=== PATIENT | female | born 1930 | race Caucasian/White ===

== ENCOUNTER 2016-11-28 13:18 | Inpatient (IN) | payer MEDICARE, BC ==
[~2016-11-28] VITALS: Ht 162.6 cm; Wt 59.5 kg
--- NOTE | ~2016-11-28 | HEMODYNAMI ---
PATIENT:CYDNEY PITT MEDICAL RECORD: [id number] : [birth year] [facility] ADMISSION DATE: 11/28/16 Generatedon:12/06/201610:41 Patient name: CYDNEY PITT Patient #: [id number] SSN: : 1930 Date of study: 12/06/2016 Page: Of Hemodynamic Procedure Report Patient Data Patient Demographics Procedure consent was obtained First Name: CYDNEY Gender: Female Last Name: SWEETIE : 1930 [facility] Initial: B Age: 86 year(s) Patient #: [id number] Race: Unknown Additional ID: [id number] Contact details Address: [address] [place] [address] [facility] State: [place] City: [place] Zip code: [address] Past Medical History Allergies Allergen Reaction Date Comments Reported NSAIDs 12/06/2016 Admission Admission Data Admission Date: 11/28/2016 Admission Time: 13:18 Room #: [facility] Weight (lbs.): 131 Weight (kg.): 59.42 Procedure Procedure Types Cath Procedure Peripheral Cath Diagnostic Procedure Cath Peripheral Abd/Extremity Extremities Bilat Lower Extremity Procedure Description Procedure Date Procedure Date: 12/06/2016 Procedure Start Time: 8:48 Procedure Staff Name Function Andrew Cruz MD Performing Physician Kenrick Anderson RT Scrub Candelario Roque MD Additional personnel Hiral Fletcher RN Nurse Jenny Xie RN Nurse Lucy Meredith RT Bran Mixer Lucy Meredith RT Monitor Procedure Data Cath Procedure Fluoroscopy Diagnostic fluoroscopy Total fluoroscopy Time: 13 time: 13 min min Diagnostic fluoroscopy Total fluoroscopy dose: 74 dose: 74 mGy mGy Contrast Material Contrast Material Type Amount (ml) Isovue 300 55 Entry Location Entry Primary Successful Side Size Upsize Upsize Entry Closure Succes sful Closure Location (Fr) 1 (Fr) 2 (Fr) Remarks Device Remarks Femoral Left Mynx artery Binding Stitcher 6Fr/7Fr Diagnostic catheters Device Type Used For End Catheter Placement Diagnostic 5Fr IMT Catheter Procedure Medications Medication Administration Route Dosage Heparin Bolus I.V. 4000 units Verapamil 2.5 mg Nitroglycerin IC/IA I.A. 300 Nitroglycerin IC/IA I.A. 300 Heparin Bolus I.V. 1000 units Nitroglycerin IC/IA I.A. 200 Hemodynamics Rest Heart Rate: 90 (bpm) Snapshots Pre Cath Intra NCS Post Cath Vital Signs Time Heart Resp SPO2 NIBP (mmHg) Rhythm Pain Sedation Rate (ipm) (%) Status Level (bpm) 8:16:25 106 18 95 No Cuff NSR 0 (11) 10(A) , No pain 8:20:25 104 16 94 No Cuff NSR 0 (11) 10(A) , No pain 8:24:25 96 19 94 No Cuff NSR 0 (11) 10(A) , No pain 8:28:24 95 24 91 No Cuff NSR 0 (11) 10(A) , No pain 8:32:05 101 20 92 153/78(116) NSR 0 (11) 10(A) , No pain 8:36:25 77 19 91 149/61(115) NSR 0 (11) 10(A) , No pain 8:40:45 74 19 84 130/59(100) NSR 0 (11) 10(A) , No pain 8:44:57 70 23 98 118/59(88) NSR 0 (11) 10(A) , No pain 8:49:05 70 23 96 116/59(94) NSR 0 (11) 10(A) , No pain 8:53:13 66 6 65 117/58(95) NSR 0 (11) 10(A) , No pain 8:57:21 70 10 100 118/58(86) NSR 0 (11) 10(A) , No pain 9:01:33 66 10 100 105/47(81) NSR 0 (11) 10(A) , No pain 9:05:41 64 10 99 94/46(71) NSR 0 (11) 10(A) , No pain 9:09:44 63 10 99 95/45(73) NSR 0 (11) 10(A) , No pain 9:13:50 60 10 99 91/43(72) NSR 0 (11) 10(A) , No pain 9:17:54 61 10 99 89/43(68) NSR 0 (11) 10(A) , No pain 9:21:58 59 10 99 89/44(68) NSR 0 (11) 10(A) , No pain 9:25:22 60 9 99 98/45(74) NSR 0 (11) 10(A) , No pain 9:29:28 58 9 99 90/44(70) NSR 0 (11) 10(A) , No pain 9:33:32 59 10 99 89/43(68) NSR 0 (11) 10(A) , No pain 9:37:36 60 9 99 84/42(65) NSR 0 (11) 10(A) , No pain 9:41:35 59 9 99 100/45(75) NSR 0 (11) 10(A) , No pain 9:42:31 60 10 99 95/41(73) NSR 0 (11) 10(A) , No pain 9:46:35 57 9 99 104/49(82) NSR 0 (11) 10(A) , No pain 9:50:40 59 9 99 Aborted NSR 0 (11) 10(A) , No pain 9:52:29 58 10 99 107/49(84) NSR 0 (11) 10(A) , No pain 9:55:41 59 9 98 109/49(86) NSR 0 (11) 10(A) , No pain 9:59:49 59 10 99 114/48(90) NSR 0 (11) 10(A) , No pain 10:03:57 59 9 99 120/52(95) NSR 0 (11) 10(A) , No pain 10:08:07 60 9 99 121/51(98) NSR 0 (11) 10(A) , No pain 10:12:19 61 9 99 128/51(100) NSR 0 (11) 10(A) , No pain 10:16:33 60 9 99 126/52(99) NSR 0 (11) 10(A) , No pain 10:20:47 57 9 99 122/49(93) NSR 0 (11) 10(A) , No pain 10:24:57 76 9 99 132/62(102) NSR 0 (11) 10(A) , No pain 10:29:13 63 24 99 117/53(87) NSR 0 (11) 10(A) , No pain 10:33:23 62 14 99 115/50(88) NSR 0 (11) 10(A) , No pain 10:35:17 79 17 99 132/59(94) NSR 0 (11) 10(A) , No pain 10:39:27 78 16 94 149/68(118) NSR 0 (11) 10(A) , No pain Medications Time Medication Route Dose Verified Delivered Reason Notes Ef fectiveness by by 9:30:00 Verapamil IA 2.5mg Jenny Andrew Per physician Rojas Cruz RN, MD 9:30:51 Nitroglycerin I.A. 300 Jenny Andrew for IC/IA Rojas Nancy vasodilation PORTILLO SALINAS 9:35:27 Heparin Bolus I.V. 4000 Jenny Jenny for units Rojas Rojas anticoagulation RN PORTILLO 9:51:13 Nitroglycerin I.A. 300 Jenny Andrew for IC/IA Rojas Nancy vasodilation PORTILLO SALINAS 10:12:35 Heparin Bolus I.V. 1000 Jenny Jenny for units Rojas Rojas anticoagulation RN PORTILLO 10:18:36 Nitroglycerin I.A. 200 Jenny Andrew for IC/IA Rojas Nancy vasodilation PORTILLO SALINAS Procedure Log Time Note 7:48:47 Patient Weight : 131 kg 7:49:37 Use device set IR Diagnostic 7:49:43 Sterile Angiographic Pack opened to sterile field. 7:49:44 Bag Decanter opened to sterile field. 7:50:14 Micropuncture VSI 4FR kit opened to sterile field. 7:50:14 Cook CARLSON 145cm guide wire opened to sterile field. 7:50:36 - 8:01:41 Time tracking: Regular hours 8:08:43 Plan of Care:Hemodynamics will remain stable., Cardiac rhythm will remain stable., Comfort level will be maintained., Respiratory function will remain adequate., Patient/ family verbilizes understanding of procedure., Procedure tolerated without complication., Recovers from procedure without complications.. 8:08:50 Patient received from CVICU to IR Alert and oriented. Tansferred to table in Supine position. 8:08:51 Correct patient and procedure confirmed by team. 8:08:53 Signed procedure consent form obtained from patient. 8:08:56 - 8:09:03 H&P Date Dictated: 12/06/2016 Within 30 days and on chart.. 8:09:05 Pre-procedure instructions explained to patient. 8:09:06 Pre-op teaching completed and patient verbalized understanding. 8:09:08 Family in waiting room. 8:09:10 Patient NPO since Midnight. 8:09:29 Patient allergic to NSAIDs 8:09:38 Is the patient allergic to Iodine/contrast media? No. 8:10:04 Is patient on blood thinner?No 8:10:23 Patient diabetic? No. 8:10:26 - 8:10:28 ----Pre-sedation anethsthesia assessment.---- 8:10:35 Previous problem with sedation/anesthesia? No ? 8:12:23 see anesthesia notes for monitoring of patient during procedure 8:12:40 Pre procedure: right dorsailis pedis pulse Doppler 8:12:45 Pre procedure: left dorsailis pedis pulse Doppler 8:12:50 Pre procedure: right posterior tibial pulse Doppler 8:12:55 Pre procedure: left posterior tibial pulse Doppler 8:15:34 Vital chart was started 8:35:11 Baseline sample Acquired. 8:35:13 - 8:35:23 Physician arrived 8:36:14 CXI Catheter 90cm opened to sterile field. 8:39:22 --------ALL STOP TIME OUT------ 8:39:22 Final Timeout: patient, procedure, and site verified with staff and physician. All members of the team are in agreement. 8:47:21 Physical assessment completed. ASA score P 4 - A patient with severe systemic disease that is a constant threat to life as per Andrew Cruz MD. 8:47:38 Procedure started. 8:47:38 Full Disclosure recording started 8:48:06 Local anesthetic to right pedal artery with Lidocaine 1% by Andrew Cruz MD.INITIAL ACCESS ONLY 8:48:41 Arterial access obtained using ultrasound guidance. 8:57:49 anesthesia was changed to general 9:19:50 Alex OncimmuneNNER .035 145 glide wire opened to sterile field. 9:22:53 DILATOR, VESSEL 4/20 opened to sterile field. 9:30:00 Verapamil 2.5mg IA was administered by Andrew Cruz MD; Per physician ; 9:30:51 Nitroglycerin IC/IA 300 I.A. was administered by Andrew Cruz MD; for vasodilation; 9:31:00 [place] Eliezer 5FR Sheath opened to sterile field. 9:33:24 A Diagnostic 5Fr IMT Catheter was advanced over the wire and used for . 9:35:15 Terumo 6Fr [place] Destination Sheath opened to sterile field. 9:35:16 Cook DELONG 260 guide wire opened to sterile field. 9:35:27 Heparin Bolus 4000 units I.V. was administered by Jenny Xie RN; for anticoagulation; 9:39:24 CXI SUPPORT .035 135 CM STR catheter opened to sterile field. 9:42:[address] 260 .035 glide wire opened to sterile field. 9:45:28 Cantwell Sci Choice PT Floppy Straight 300cm 0.014 g opened to sterile field. 9:47:52 Turbohawk 1 Small Atherectomy catheter opened to sterile field. 9:51:13 Nitroglycerin IC/IA 300 I.A. was administered by Andrew Cruz MD; for vasodilation; 10:12:35 Heparin Bolus 1000 units I.V. was administered by Jenny Xie RN; for anticoagulation; 10:18:36 Nitroglycerin IC/IA 200 I.A. was administered by Andrew Cruz MD; for vasodilation; 10:21:23 St Eliezer 6Fr sheath opened to sterile field. 10:26:31 MYNX BREAK AND LOAD OPERATOR 6FR/7FR opened to sterile field. 10:27:22 A sheath was inserted into the Left Femoral artery 10:27:22 Sheath removed intact; hemostasis achieved with Mynx Binding Stitcher 6Fr/7Fr to th e Left Femoral artery. 10:28:02 Procedure ended.(Physican Out) 10:28:09 Fluoroscopy time 13.00 minutes. 10:28:17 Fluoroscopy dose: 74 mGy 10:28:17 Flurop Dose total: 74 10:28:23 Contrast amount:Isovue 300 55ml. 10:28:26 Procedure and supply charges have been captured, reviewed, submitted an d are correct. 10:41:33 Vital chart was stopped Device Usage Item Name Manufacture Quantity Catalog Number Hospital Part Current Or nimal Lot# / Charge Number Stock Stock Serial# Code Sterile Cardinal 1 [id number] 5 Angiographic Health Pack Bag Decanter Microtek 1 [id number] 214189 78394 829682 5 Medical Inc. Micropuncture VSI VASCULAR 1 [id number] 525790 807298 5 VSI 4FR kit SOLUTIONS [facility] 1 [id number] 389560 475213 5 [id number] 145cm guide wire CXI Catheter [facility] 1 [id number] 585649 208577 268946 5 [id number] 90cm Cook [facility] 1 [id number] 440145 084018 [id number] .035 145 glide wire DILATOR, [facility] 1 [id number] 543587 34691 277009 [id number] VESSEL 4/[address] Eliezer 1 663243 166698 611167 5 [id number] Sheath Diagnostic [place] 1 [id number] 323156 508725 28261 5 5Fr IMT Scientific Catheter Terumo 6Fr Terumo 1 RSR01 137020 80214 047479 5 [place] Destination Sheath [facility] 1 [id number] 762672 256779 5 [id number] 260 guide wire CXI SUPPORT [facility] 1 X40374 173464 998221 5 [id number] .035 135 CM STR catheter [facility] 1 [id number] 406936 580307 [id number] 260 .035 glide wire Cantwell Sci [place] 1 [id number] 520729 967551 236009 5 Choice PT Scientific Floppy Straight 300cm 0.014 g Turbohawk 1 Ev3 1 H1-S 404595 9972961 558948 [address] [facility] [address] [facility] [place] 1 693818 066541 390149 5 0737835 sheath MYNX BREAK AND LOAD OPERATOR Access 1 [id number] 523125 978701 5 [id number] 6FR/7FR Closure Signature Audit [place] Stage Time Signature Unsigned Intra-Procedure 12/06/2016 Lucy Meredith 10:41:31 AM RT(R) Signatures Monitor : Lucy Meredith RT Signature : Date : Time : [facility] Alva0 MAURILIO ABDUL [address]
[~2016-11-28 13:18] MED LIST: ASPIRIN EC81 M1 PO; BAYER CHEWABLE81 MG PO; BRILINTA90 MG PO; CARAFATE1 G/10 ML PO; CARDIZEM CD120 MG PO; CLARITIN 10 MG10 MG PO; COENZYME Q10100 MG PO; COUMADIN1 MG PO; COUMADIN2 MG PO; FEXOFENADINE HC60 MG PO; HYDROCODON-ACE1 EAC7 PO; IMODIUM2 MG PO; K-TAB10 MEQ PO; LOTENSIN20 MG PO; LOTREL 10/20 CA1 CAP PO; MUCINEX600 MG PO; NORCO 5/325 TAB1 TA1 PO; NORVASC10 MG PO; PHENERGAN25 M1 PO; PLAVIX75 MG PO; PROTONIX40 MG PO; ULTRACET TABLET1 TAB PO; ZIAC 10/6.25 MG1 TAB PO
[2016-11-28 14:50] LABS: BASOPHILS 0.1 % (0.0-2.0); EOSINOPHILS 0.8 % (0-7); HEMATOCRIT 32.7 % (36.0-48.0); HEMOGLOBIN 10.4 g/dL (12-16); IMMATURE GRANULOCYTES 0.4 % (0-5); LYMPHOCYTES 14.6 % (15-50); MCH 23.8 pg (26.0-34.0); MCHC 31.8 g/dL (31.0-37.0); MCV 74.8 fL (80.0-100.0); MEAN PLATELET VOLUME 9.8 fL (7.4-10.4); NEUTROPHILS 71.1 % (40-80); PLATELET COUNT 302 10x3/uL (130-400); RBC 4.37 10x6/uL (4.00-5.40); RDW 15.6 % (11.5-14.5); WBC 8.6 10x3/uL (4.8-10.8)
[2016-11-28 15:03] LABS: ANION GAP 14.1 mmol/L (8-16); CARBON DIOXIDE 25.3 mmol/L (21.0-32.0); CREATININE - SERUM 1.1 mg/dL (0.6-1.3); POTASSIUM - SERUM 4.4 mmol/L (3.5-5.1)
[2016-11-28 15:49] VITALS: BP 179/57; BMI 21.3
--- NOTE | 2016-11-28 16:00 | NUR ---
DR TROTTER AND HIS STAFF ARE HERE REDRESSING PATIENTS RIGHT 4TH DIGIT TOE, IT IS PACKED WITH DAKENS AND WRAPPED WITH GAUZE AND KERLIX. PATIENT'S DAUGHTER AT BEDSIDE.
--- NOTE | 2016-11-28 18:30 | NUR ---
TWO IV ATTEMPTS, BOTH FAILED, WILL GET ANOTHER NURSE TO GET IV SITED.
--- NOTE | 2016-11-28 18:50 | NUR ---
20 GAUGE IV SITED TO RIGHT FOREARM X1 ATTEMPT. FLUSHES EASY WITH BRISK BLOOD RETURN PRESENT. SECURED WITH TAPE AND TEGADERM. WELL TOLERATED.
[2016-11-28 20:00] VITALS: BP 127/70
[2016-11-29] VITALS (7 sets, daily range): BP systolic 129–162; BP diastolic 42–69; Ht 162.6 cm; Wt 59.5 kg
--- NOTE | 2016-11-29 00:30 | NUR ---
ASSESSED AT THE BEGINNING OF THE SHIFT. PT IS ALERT AND ORIENTED, ABLE TO VERBALIZE NEEDS. SHE WAS REQUESTING PAIN MEDS FOR HER RIGHT FOOT PAIN AND MD WAS CALLED AND ORDERS OBTAINED. AT BEDTIME SHE TOOK HER OTHER MEDS AND A NORCO 5/325 FOR PAIN AND IS RESTING BETTER NOW. THE RIGHT FOOT IS DRESSED AND HAS A STOCKING TO KEEP DRESSING IN PLACE. THE BED IS LOW, RAILS UP X'S 2 WITH THE CALL LIGHT AT HAND.
[2016-11-29 06:39] LABS: BASOPHILS 0.4 % (0.0-2.0); EOSINOPHILS 1.7 % (0-7); HEMATOCRIT 31.7 % (36.0-48.0); HEMOGLOBIN 10.3 g/dL (12-16); IMMATURE GRANULOCYTES 0.4 % (0-5); LYMPHOCYTES 19.6 % (15-50); MCHC 32.5 g/dL (31.0-37.0); MCV 73.7 fL (80.0-100.0); MEAN PLATELET VOLUME 9.6 fL (7.4-10.4); MONOCYTES 16.2 % (2-11); NEUTROPHILS 61.7 % (40-80); PLATELET COUNT 266 10x3/uL (130-400); RDW 15.6 % (11.5-14.5)
[2016-11-29 06:44] LABS: WBC 4.8 10x3/uL (4.8-10.8)
[2016-11-29 06:57] LABS: ANION GAP 10.5 mmol/L (8-16); CALCIUM 8.3 mg/dL (8.5-10.1); CARBON DIOXIDE 24.3 mmol/L (21.0-32.0); CREATININE - SERUM 1.2 mg/dL (0.6-1.3); POTASSIUM - SERUM 3.8 mmol/L (3.5-5.1)
--- NOTE | 2016-11-29 08:14 | NUR ---
AWAKE AND ALERT. ORIENTED X3. LUNGS ARE CLEAR BILATERALLY, NO COUGH NOTED. SKIN IS INTACT WTIHOUT REDNESS EXCEPT WOUND TO FOURTH TOE ON RIGHT FOOT WHICH HAS A DRY INTACT DRESSING IN PLACE. IV TO RIGHT FOREARM PATENT WITHOUT REDNESS AT INSERTION SITE. DENIES NEEDS. BREAKFAST SERVED IN ROOM.
--- NOTE | 2016-11-29 09:30 | NUR ---
ASSISTED WITH BED BATH PER STAFF. LINENS CHANGED.
--- NOTE | 2016-11-29 16:00 | NUR ---
IV SITED TO RIGHT AC AREA AFTER 2 ATTEMPTS FOR HEPARIN INFUSION.
--- NOTE | 2016-11-29 17:56 | NUR ---
Patient Name: CYDNEY PITT Admission Status: Urgent Admission Date: 11-28-2016 : 1930 Admission Diagnosis:UNSP OPN WND RIGHT LESSER TOE(S) W/O DAMAGE TO NAIL, IN Attending: AUGUSTO Current LOS: 1 Anticipated DC Date: 12-03-2016 Planned Disposition: Home Primary Insurance: MEDICARE A & B Discharge Planning Comments: CM met with patient to discuss discharge planning/needs. The patient states she resides at [facility]. She states there are no steps but she does use the elevator. Patient also states she has a walker, wheelchair, and a shower chair. She states she is otherwise independent in all ADL's. The patient states she has used [facility] in the past and feels they would be beneficial at discharge. She denies additional DME needs at this time. The patient states her home is a safe environment to return to. Her PCP is Dr. Jose and she uses [facility]([phone]). If facility does not supply van for transportation at discharge, the patient's daughter "Sally Atkins" ([phone] or [phone]) will transport her home. CM will follow and continue to assist patient with discharge planning/needs. Sheet Writer: Perla Shaw * Is the patient Alert and Oriented? Yes 0 * How many steps to enter\\exit or inside your home? 0 0 * PCP Dr. Jose [phone] 0 * Pharmacy [facility] [phone] 0 * Preadmission Environment Other 0 * Other Environment Independent Living at [facility] 0 * Facility Name [facility] [address] 0 * ADLs Partial Dependent 0 * Partial ADLs (Assistance needed) Ambulation 0 * Equipment Shower Chair Walker Wheelchair 0 * List name and contact numbers for known caregivers / representatives who currently or will assist patient after discharge: Sally Atkins "daughter" ([phone]) Patient states caregivers with [facility] [address] [facility] also assist patient as needed 0 * Community resources currently utilized None 0 * Additional services required to return to the preadmission environment? No 0 * Can the patient safely return to the preadmission environment? Yes 0 * Has this patient been hospitalized within the prior 30 days at any hospital? No 0 Grand Total: 0
--- NOTE | 2016-11-29 18:00 | NUR ---
UP TO BR WITH ONE PERSON MIN ASSIST. HEPARIN DRIP INITIATED AFTER PTT RESULTED. NO CHANGES AT THIS TIME.
[2016-11-30] VITALS: BP 113/60
[2016-11-30 04:00] VITALS: BP 126/66
[2016-11-30 07:26] LABS: BASOPHILS 0.4 % (0.0-2.0); EOSINOPHILS 1.6 % (0-7); HEMATOCRIT 32.8 % (36.0-48.0); HEMOGLOBIN 10.5 g/dL (12-16); IMMATURE GRANULOCYTES 0.2 % (0-5); LYMPHOCYTES 19.2 % (15-50); MCH 23.6 pg (26.0-34.0); MCV 73.7 fL (80.0-100.0); MEAN PLATELET VOLUME 9.9 fL (7.4-10.4); MONOCYTES 18.5 % (2-11); NEUTROPHILS 60.1 % (40-80); PLATELET COUNT 260 10x3/uL (130-400); RBC 4.45 10x6/uL (4.00-5.40); RDW 15.5 % (11.5-14.5); WBC 5.5 10x3/uL (4.8-10.8)
--- NOTE | 2016-11-30 07:30 | NUR ---
RECIEVED PT DURING WALKING ROUNDS. PT RESTING COMFORTABLY IN BED WITH NO COMPLAINTS OF PAIN OR DISCOMFORT AT THIS TIME. ASSESSMENT DONE PER FLOWSHEET. BED IN LOW POSITION AND CALL LIGHT WITHIN REACH. WILL CONTINUE TO MONITOR.
[2016-11-30 07:45] LABS: ANION GAP 10.3 mmol/L (8-16); CREATININE - SERUM 1.1 mg/dL (0.6-1.3); POTASSIUM - SERUM 3.3 mmol/L (3.5-5.1)
[2016-11-30 07:48] LABS: CALCIUM 8.1 mg/dL (8.5-10.1)
[2016-11-30 09:32] VITALS: BP 160/55
--- NOTE | 2016-11-30 10:22 | NUR ---
NORCO GIVEN AT THIS TIME PER ORDER FOR PAIN IN THE PT FOOT. WILL CONTINUE TO MONITOR. BED IN LOW POSITION AND CALL LIGHT WITHIN REACH. WILL CONTINUE TO MONITOR.
--- NOTE | 2016-11-30 12:52 | NUR ---
QUIET IN ROOM AT PRESENT DENIES ANY NEEDS IV FLUIDS CONT RESP EVEN UNLABORED N/C VOICED AT PRESENT.
[2016-11-30 13:46] VITALS: BP 141/50
[2016-11-30 19:18] VITALS: BP 140/69
[2016-11-30 20:00] VITALS: BP 158/54
[2016-12-01] VITALS: BP 176/52
--- NOTE | 2016-12-01 00:10 | NUR ---
PT LAYING IN BED NO DITRESS OBSERVED CALL LIGHT IN REACH SRX2 BED LOW AND LOCKED WILL MONITOR PT DENIES PAIN AND ASSISTED PT TO REST ROOM
[2016-12-01 03:31] LABS: BASOPHILS 0.1 % (0.0-2.0); HEMOGLOBIN 11.2 g/dL (12-16); IMMATURE GRANULOCYTES 0.3 % (0-5); LYMPHOCYTES 12.2 % (15-50); MCH 23.7 pg (26.0-34.0); MEAN PLATELET VOLUME 9.6 fL (7.4-10.4); MONOCYTES 11.3 % (2-11); NEUTROPHILS 74.1 % (40-80); PLATELET COUNT 280 10x3/uL (130-400); RBC 4.73 10x6/uL (4.00-5.40); RDW 15.6 % (11.5-14.5)
[2016-12-01 03:33] LABS: WBC 7.1 10x3/uL (4.8-10.8)
[2016-12-01 03:52] LABS: ALBUMIN 3.2 g/dL (3.4-5.0); ANION GAP 15.9 mmol/L (8-16); BILIRUBIN - TOTAL 0.45 mg/dL (0.2-1.3); CALCIUM 8.7 mg/dL (8.5-10.1); CARBON DIOXIDE 23.8 mmol/L (21.0-32.0); POTASSIUM - SERUM 3.7 mmol/L (3.5-5.1); VANCOMYCIN - TROUGH 14.8 ug/mL (10.0-20.0)
[2016-12-01 04:00] VITALS: BP 155/46
--- NOTE | 2016-12-01 06:12 | NUR ---
IV TO RIGHT FORE ARM INFILTRATED DC'D IV CATHETER INTACT AND RESITED TO LEFT FORE ARM 20G ONE STICK ZOYSON INFUSING AT THIS TIME CALL LIGHT IN REACH SRX2 BED LOW AND LOCKED HEPRIN INFUSING TO RIGHT AC @ 7.5 NO REDNESS OBSERVED BED LOW AND LOCKED WILL MONITOR
--- NOTE | 2016-12-01 07:45 | NUR ---
ASSISTED PATIENT TO AND FROM THE BATHROOM. PATIENT'S DRESSING CAME OFF OF HER FOOT. CLEANED THE WOUND WITH WOUND HOSPITAL ACCOUNT MANAGER. APPLIED A SMALL PEICE OF PACKING TAPE WET WITH DAKIN'S SOLUTION TO THE LATERAL SIDE OF FORTH TOE. THE LATERAL SIDE OF THE TOE IS BLACK. PUT A DRY PIECE OF GAUZE OVER THE WET. THEN WRAPPED FOOT WITH CAST PADDING AND A KERLIX. PATIENT IS IN BED. HOB 30 DEGREES. FOOT OF THE BED IS ELEVATED. BED IS IN LOWEST POSITION, CALL LIGHT IN REACH. BEDRAILS UP X'S 2. PATIENT DENIES NEEDS AT THIS TIME.
[2016-12-01 09:00] VITALS: BP 154/50
--- NOTE | 2016-12-01 15:40 | NUR ---
SPOKE WITH DAUGHTER, AND SHE STATES SHE WANTS TO MEET WITH A OPERATING TABLE ASSEMBLER ABOUT HER MOTHER GOING HOME. HER NUMBER IS [phone], DENISE TINAJERO.
[2016-12-01 16:34] VITALS: BP 146/51
[2016-12-01 20:19] LABS: APPEARANCE CLEAR (CLEAR); BILIRUBIN NEGATIVE (NEGATIVE); COLOR YELLOW (YELLOW); GLUCOSE NEGATIVE (NEGATIVE); KETONE NEGATIVE (NEGATIVE); LEUKOCYTE ESTERASE NEGATIVE (NEGATIVE); NITRITE NEGATIVE (NEGATIVE); PROTEIN 1+ mg/dL (NEGATIVE); UROBILINOGEN NORMAL (NORMAL)
[2016-12-01 20:20] LABS: BACTERIA FEW /hpf (NONE SEEN); EPITHELIAL CELLS 0-5 /hpf (0-5); MUCUS <1+ /lpf (NONE SEEN); RED CELLS - URINE OCC /hpf (0-5); WHITE CELLS - URINE 0-5 /hpf (0-5)
[2016-12-01 23:13] VITALS: BP 165/62
--- NOTE | 2016-12-01 23:13 | NUR ---
PATIENT RESTING IN BED. NO SIGNS OF DISTRESS NOTED. SCHEDULED MEDS GIVEN. ASSESSMENT COMPLETED. DENIES ANY NEEDS AT THIS TIME. BED LOW. CALL LIGHT IN REACH.
[2016-12-02] VITALS (28 sets, daily range): BP systolic 111–183; BP diastolic 31–99
--- NOTE | 2016-12-02 02:15 | NUR ---
22 G IV SITED IN R FOREARM X 2 ATTEMPTS, ESSENCE WELL, FALL PRECAUTIONS IN PLACE, CL IN REACH
--- NOTE | 2016-12-02 03:00 | NUR ---
PT IN BED WITH NO DISTRESS. RESPIRATIONS EVEN AND UNLABORED. SIDE RAILS X 2. BED LOW. CALL LIGHT IN REACH.
--- NOTE | 2016-12-02 04:29 | NUR ---
IV TO L FOREARM INFILTRATED, DC'D WITH CATH INTACT, 20 G SITED IN L FOREARM X 1 ATTEMPT, ESSENCE WELL
[2016-12-02 05:28] LABS: BASOPHILS 0.1 % (0.0-2.0); HEMATOCRIT 34.2 % (36.0-48.0); HEMOGLOBIN 10.9 g/dL (12-16); IMMATURE GRANULOCYTES 0.1 % (0-5); LYMPHOCYTES 21.3 % (15-50); MCH 23.6 pg (26.0-34.0); MCHC 31.9 g/dL (31.0-37.0); MCV 74.2 fL (80.0-100.0); MONOCYTES 12.4 % (2-11); NEUTROPHILS 64.1 % (40-80); PLATELET COUNT 306 10x3/uL (130-400); RBC 4.61 10x6/uL (4.00-5.40); RDW 15.5 % (11.5-14.5); WBC 7.9 10x3/uL (4.8-10.8)
[2016-12-02 05:48] LABS: ANION GAP 15.1 mmol/L (8-16); CALCIUM 8.8 mg/dL (8.5-10.1); CARBON DIOXIDE 25.1 mmol/L (21.0-32.0); POTASSIUM - SERUM 4.2 mmol/L (3.5-5.1)
--- NOTE | 2016-12-02 11:09 | NUR ---
PT RECEIVED TO ROOM VIA BED. ON 8L O2 HIGH FLOW MASK. PT AWAKE, FIGHTING TO KEEP LEGS STRAIGHT. LEFT PEDAL PULSE AND POSTERIOR TIBIAL FOUND BY DOPPLER. RIGHT POSTERIOR TIBIAL FOUND BY DOPPLER. DRESSING INTACT OVER RIGHT FOOT. HAS CLEAR DRESSING TO INCISIONAL SITE AT LEFT GROIN.
--- NOTE | 2016-12-02 11:28 | NUR ---
KRISS TROTTER RN AT [facility] TITRATING NITRO TO EFFECT.
--- NOTE | 2016-12-02 11:33 | NUR ---
PT. HAS HAD NEURO CHANGES SINCE ARRIVING. DR. VILLAVICENCIO HAS BEEN PAGED. WILL NOT RESPOND TO VERBAL STIMULI. HR 113 [address]. BP 149/899. SATTING 95% ON RA. RR 16 EVEN AND UNLABORED.
--- NOTE | 2016-12-02 11:37 | NUR ---
ANSWERING QUESTIONS NOW. CONVERSING WITH KRISS NATH.
--- NOTE | 2016-12-02 11:40 | NUR ---
SUGAMMADEX [address] LUCIA.
--- NOTE | 2016-12-02 12:56 | NUR ---
REMINDED PT. TO KEEP LEGS STRAIGHT. UNDERSTANDS REQUEST. NITRO BEING TITRATED OFF. CLEVIPREX INFUSING.
--- NOTE | 2016-12-02 13:03 | NUR ---
NITRO OFF. CLEVIPREX INCREASED TO 3 CC PER HOUR OR 1.5MG/HR. SBP 143.
--- NOTE | 2016-12-02 13:03 | NUR ---
NO S/S OF BLEEDING AT LEFT GROIN PROCEDURAL SITE.
--- NOTE | 2016-12-02 14:24 | NUR ---
C/O FOOT PAIN. PAIN MEDS ADMN.
--- NOTE | 2016-12-02 14:36 | NUR ---
I SPOKE WITH NICOLE PERERA RN ABOUT UAF RATE OF 150. ORDERS REC'D TO CONSULT CARDIOLOGY.
--- NOTE | 2016-12-02 14:54 | NUR ---
LASHELL ENRIQUEZ AFIB
--- NOTE | 2016-12-02 14:57 | NUR ---
ORDERS REC'D FROM DR LOBO TO GIVE CARDIZEM 120 MG PO X1 AND SOTOLOL 120 MG PO X1
--- NOTE | 2016-12-02 15:03 | NUR ---
HR 119 UAF
--- NOTE | 2016-12-02 15:30 | NUR ---
NUTRITION MONITORING & EVAL PT S/P PROCEDURE. NOW IN ICU. REG DIET STARTED. WILL PROVIDE DIET, MONITOR PO INTAKE. RD FOLLOWING
--- NOTE | 2016-12-02 16:06 | NUR ---
CONVERTED TO NS RATE OF 80
--- NOTE | 2016-12-02 17:03 | NUR ---
PULLS 750-1000 ON IS
--- NOTE | 2016-12-02 18:15 | NUR ---
FAMILY AT BEDSIDE. UPDATED.
--- NOTE | 2016-12-02 21:00 | NUR ---
NO VISITORS, PT WATCHING TV, VSS.
--- NOTE | 2016-12-02 23:05 | NUR ---
REASSESSMENT PER FLOWSHEET, NO ACUTE CHANGES. VSS. PT AWAKENS EASILY, DENIES NEEDS. C/L IN REACH, ALARMS ON.
[2016-12-03] VITALS (23 sets, daily range): BP systolic 101–152; BP diastolic 40–88
--- NOTE | 2016-12-03 00:31 | NUR ---
PT ON C/L. C/O R FOOT "STARTING TO HURT". ADMIN PRN FELICO. WILL CONT CLOSE MONITORING.
--- NOTE | 2016-12-03 01:10 | NUR ---
RESTING WITH EYES CLOSED, FLACC = 0. VSS.
--- NOTE | 2016-12-03 03:30 | NUR ---
REASSESSMENT PER FLOWSHEET, NO ACUTE CHANGES. VSS.
[2016-12-03 06:21] LABS: BASOPHILS 0.4 % (0.0-2.0); EOSINOPHILS 2.4 % (0-7); IMMATURE GRANULOCYTES 0.1 % (0-5); LYMPHOCYTES 16.6 % (15-50); MCH 23.2 pg (26.0-34.0); MCV 75.1 fL (80.0-100.0); MEAN PLATELET VOLUME 9.6 fL (7.4-10.4); MONOCYTES 14.2 % (2-11); NEUTROPHILS 66.3 % (40-80); RDW 15.6 % (11.5-14.5); WBC 7.4 10x3/uL (4.8-10.8)
[2016-12-03 06:32] LABS: HEMATOCRIT 26.8 % (36.0-48.0); HEMOGLOBIN 8.3 g/dL (12-16); PLATELET COUNT 230 10x3/uL (130-400); RBC 3.57 10x6/uL (4.00-5.40)
[2016-12-03 06:35] LABS: ALBUMIN 2.3 g/dL (3.4-5.0); ANION GAP 7.5 mmol/L (8-16); BILIRUBIN - TOTAL 0.3 mg/dL (0.2-1.3); CALCIUM 7.6 mg/dL (8.5-10.1); CARBON DIOXIDE 30.6 mmol/L (21.0-32.0); CREATININE - SERUM 1.2 mg/dL (0.6-1.3); PROTEIN - SERUM 5.2 g/dL (6.4-8.2)
[2016-12-03 06:47] LABS: POTASSIUM - SERUM 3.1 mmol/L (3.5-5.1)
--- NOTE | 2016-12-03 07:45 | NUR ---
SHIFT ASSESSMENT VIA FLOWSHEET, SEE FOR DETAILS. VSS, SR ON CM WITH PAC.
--- NOTE | 2016-12-03 08:35 | NUR ---
ORTIZ CATHETER D/C'D PER ORDER.
--- NOTE | 2016-12-03 08:39 | NUR ---
PT OFF UNIT TO MRI.
--- NOTE | 2016-12-03 09:17 | NUR ---
SPOKE WITH BENSON, WOUND CARE, NOTIFIED OF CONSULT AND STATES SHE WILL SEE PATIENT TODAY.
--- NOTE | 2016-12-03 09:26 | NUR ---
PT RETURNED FROM MRI, ICU MONITORS RECONNECTED.
--- NOTE | 2016-12-03 09:35 | NUR ---
PT OOB WITH PHYSICAL THERAPY ASSIST. RETURNED TO CHAIR AT BEDSIDE.
--- NOTE | 2016-12-03 10:18 | NUR ---
WOUND CARE HERE TO ASSESS AND DRESS WOUND ON PT RIGHT FOOT, 4TH TOE.
--- NOTE | 2016-12-03 10:47 | NUR ---
DR LOBO HERE TO SEE PT, NEW ORDERS RECEIVED.
--- NOTE | 2016-12-03 10:47 | NUR ---
SHIFT ASSESSMENT VIA FLOWSHEET, SEE FOR DETAILS. VSS, SR ON CM WITH OCC PAC.
--- NOTE | 2016-12-03 11:17 | NUR ---
NORCO 5/325MG GIVEN PER ORDER FOR PT C/O PAIN. [employer] UNABLE TO SCAN MEDS AT THIS TIME. JOHNNY WITH I/T AWARE AND WORKING TO CORRECT THE ISSUE.
--- NOTE | 2016-12-03 11:23 | NUR ---
WOUND CARE CONSULT: RIGHT #4 TOE IS DARK PURPLE IN COLOR, COOL TO TOUCH. ON THE TIBIAL ASPECT OF THE TOE IS AN OPEN WOUND (#5 TOE RESTS IN THIS AREA CAUSING PRESSURE). THE WOUND IS DRY BUT PT STATES IT DOES DRAIN OCCASIONALLY. THERE IS NO ODOR. SHE IS A WOUND CLINIC PATIENT OF DR. HANNA AND THE PAST TREATMENT HAS BEEN TO USE 1/4 STRENGTH DAKINS SOLUTION SATURATED 1/4" PLAIN PACKING ON THE WOUND BED AND COVERING WITH A DRY DRESSING. WOUND CARE RECOMMENDS CONTINUING THIS TREATMENT AT THIS TIME. WILL CONTINUE MONITORING.
--- NOTE | 2016-12-03 11:30 | NUR ---
REASSESSMENT VIA FLOWSHEET, SEE FOR DETAILS.
--- NOTE | 2016-12-03 12:50 | NUR ---
PT AMBULATED 25FT WITH WALKER AND PHYSICAL THERAPY ASSIST.
--- NOTE | 2016-12-03 13:04 | NUR ---
SEE PAPER MAR FOR MEDICATION DOCUMENTATION DURING MEDITECH DOWNTIME.
--- NOTE | 2016-12-03 15:00 | NUR ---
REASSESSMENT VIA FLOWSHEET, SEE FOR DETAILS. VSS, SR ON CM.
--- NOTE | 2016-12-03 17:35 | NUR ---
DR TROTTER HERE TO MAKE EVENING ROUNDS. PT OOB IN CHAIR, VOICES NO ADDITIONAL NEEDS AT THIS TIME.
--- NOTE | 2016-12-03 18:15 | NUR ---
PT ASSISTED BACK TO BED.
--- NOTE | 2016-12-03 19:00 | NUR ---
REPORT RECEIVED AND ASSESSMENT COMPLETED. SEE FLOWSHEET. PT IN ROOM RESTING. VSS. HAS DRESSING ON LEFT GROIN. DRESSING INTACT. ALL PULSES PALPABLE. WILL CONTINUE TO MONITOR.
--- NOTE | 2016-12-03 21:00 | NUR ---
2100 MEDS GIVEN. PT HD BOWEL MOVEMENT. NO OTHER CHANGES AT THIS TIME. VSS. WILL MONITOR.
--- NOTE | 2016-12-03 23:05 | NUR ---
REASSESSMENT COMPLETED. SEE FLOWSHEET. NORCO GIVEN FOR PAIN IN RIGHT FOOT. WILL CONTINUE TO MONITOR.
[2016-12-04] VITALS (41 sets, daily range): BP systolic 120–164; BP diastolic 30–81
--- NOTE | 2016-12-04 03:57 | NUR ---
REASSESSMENT COMPLETED. SEE FLOWSHEET. ASSISTED PT TO BSC. NO OTHER CHANGES AT THIS TIME. VSS. WILL MONITOR.
--- NOTE | 2016-12-04 04:57 | NUR ---
PT WOKE UP WITH COMPLAINT OF PAIN IN FOOT AND ELEVATED B/P. NORCO GIVEN FOR PAIN. CLEVIPREX STARTED PER ORDERS. WILL CONTINUE TO MONITOR.
--- NOTE | 2016-12-04 07:30 | NUR ---
SHIFT ASSESSMENT VIA FLOWSHEET, SEE FOR DETAILS. VSS.
[2016-12-04 07:58] LABS: HEMATOCRIT 26.3 % (36.0-48.0); HEMOGLOBIN 8.2 g/dL (12-16); MCH 23.6 pg (26.0-34.0); MCHC 31.2 g/dL (31.0-37.0); MCV 75.8 fL (80.0-100.0); MEAN PLATELET VOLUME 9.9 fL (7.4-10.4); RBC 3.47 10x6/uL (4.00-5.40); RDW 15.8 % (11.5-14.5); WBC 7.1 10x3/uL (4.8-10.8)
[2016-12-04 08:02] LABS: ALBUMIN 2.3 g/dL (3.4-5.0); ANION GAP 9.3 mmol/L (8-16); BILIRUBIN - TOTAL 0.28 mg/dL (0.2-1.3); CALCIUM 7.8 mg/dL (8.5-10.1); CARBON DIOXIDE 29.3 mmol/L (21.0-32.0); PROTEIN - SERUM 5.4 g/dL (6.4-8.2)
[2016-12-04 08:05] LABS: POTASSIUM - SERUM 3.6 mmol/L (3.5-5.1)
--- NOTE | 2016-12-04 08:20 | NUR ---
ASSISTED PT OOB AND INTO CHAIR AT BEDSIDE. BREAKFAST TRAY PROVIDED. VSS. VOICES NO ADDITIONAL NEEDS AT THIS TIME. CALL LIGHT WITHIN REACH.
--- NOTE | 2016-12-04 09:00 | NUR ---
NUTRITION MONITORING & EVAL CHART REVIEWED, PT VISIT. POOR INTAKE REG BREAKFAST. PT REPORTS SHE PREFERS TO EAT MORE IN THE AFTERNOON AND EVENING. GETTING UP WITH PHYSICAL THERAPY AT THIS TIME. WILL PROVIDE REG DIET, HONOR FOOD PREFERNCES. RD FOLLOWING
--- NOTE | 2016-12-04 09:25 | NUR ---
PT AMBULATED 100FT WITH ASSISTIVE DEVICE.
--- NOTE | 2016-12-04 09:35 | NUR ---
ASSISTED PT TO RESTROOM. LEFT SUBCLAVIAN SALINE LOCKED AT THIS TIME PER ORDER.
--- NOTE | 2016-12-04 11:00 | NUR ---
REASSESSMENT VIA FLOWSHEET, SEE FOR DETAILS.
--- NOTE | 2016-12-04 13:00 | NUR ---
PT AMBULATED 150FT.
--- NOTE | 2016-12-04 13:25 | OP ---
PATIENT NAME: CYDNEY PITT MEDICAL RECORD: [id number] :[birth year] LOCATION:[id number] ADMISSION DATE:11/28/16 SURGEON: NEENA TROTTER MD DATE OF OPERATION: 12/02/2016 SURGEON: Neena Trotter MD. ANESTHESIA: General endotracheal, Dr. Roque. OPERATIONS PERFORMED: 1. Left common femoral artery sheath placement, 4-Zambian, 5-Zambian, 6-Zambian long. 2. Left external iliac arteriogram. 3. Selective right common femoral arteriogram. 4. Selective right superficial femoral arteriogram. 5. 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 6. Popliteal arteriogram. 7. Posterior tibioperoneal artery trunk arteriogram with runoff. 8. Jetstream thromboatherectomy of the entire superficial femoral artery. 9. Angioplasty, drug-coated balloon, 6 x 150, 6 x 120 and 6 x 150. 10. Angioplasty of the distal popliteal artery with a 4 x 40 nondrug-eluting balloon. PREOPERATIVE DIAGNOSIS: Gangrenous toe, right fourth digit. 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 INDICATION FOR OPERATION: Gangrene, right foot. FLUOROSCOPY TIME: 25 minutes 14 seconds. CONTRAST: Isovue 213 mL. ESTIMATED BLOOD LOSS: Less than 20 mL. FINDINGS OF THE OPERATION: 1. Left external iliac arteriogram demonstrates diffuse disease, but no significant stenosis. 2. Selective right common femoral arteriogram reveals good flow into the profunda with no flow into the superficial femoral artery. 3. Selective right superficial femoral arteriogram demonstrates no flow. 4. 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 5. Posterior tibioperoneal artery trunk arteriogram with runoff demonstrates severe disease with total occlusion of the anterior tibial, posterior tibial and peroneal arteries with collateralization to the peroneal artery to the foot. 6. Jetstream thromboatherectomy of the superficial femoral artery demonstrates much improved flow, but suboptimal. 7. Angioplasty, drug-coated balloon, 6 x 150, x 6 x 120 and 6 x 150. Post-inflation with much improved flow through the superficial femoral artery stents with flow into the popliteal artery with sluggish runoff to the foot. 8. Status post angioplasty of the distal popliteal artery demonstrates much improved flow through the distal popliteal artery. OPERATIVE REPORT [id number] CYDNEY PITT DESCRIPTION OF PROCEDURE: After informed consent, adequate preoperative medication evaluation, the patient was brought to the operating room, placed on the table in the supine position. After induction of general endotracheal anesthesia and application of appropriate monitoring devices, both groins and right leg were prepped and draped in a sterile field, utilizing Betadine scrub, alcohol, and Betadine solution. A Betadine-impregnated drape was also used. Utilizing a micropuncture technique, a 4-Zambian sheath was placed in the left common femoral artery retrogradely. This was followed by a 5-Zambian sheath. Arteriogram demonstrated the above findings with no significant stenosis. Utilizing a Glidewire and rim catheter, the right common femoral artery was selected and exchange made for an Amplatz wire with placement of a 7-Zambian long into the right common femoral artery. Arteriogram demonstrated good flow into the profunda without any flow into the superficial femoral. A steep ALVARADO injection was then made and the stent cannulated. The sheath was placed into the stent. Arteriogram demonstrated no flow. Therefore, the sheath was backed and utilizing a [place] wire and 0.018 Quick-Cross, the popliteal artery was accessed. Arteriogram demonstrated a diffuse disease distally in the open popliteal artery. The wire and Quick-Cross were then placed into the posterior tibioperoneal artery trunk. Arteriogram demonstrated total occlusion of all vessels with peroneal runoff to the ankle. The peroneal artery was then cannulated with the 0.018 and exchange made for the Jetstream atherectomy wire. Utilizing the Jetstream atherectomy device, a thromboatherectomy was performed of the superficial femoral artery on the right from the orifice of the superficial femoral artery to the mid popliteal segment. Angiogram demonstrated improved flow, but suboptimal. Three drug-coated balloons were then used to dilate the superficial femoral artery with a good result. A 4 x 40 balloon was then placed in the distal popliteal artery and the distal popliteal artery dilated with a good result. Arteriogram demonstrated good flow through the area with collateralization to the foot. The wires and catheter sheaths were removed and an 8-[place]ian Angio-Seal was used to close the left common femoral artery. The patient was given 50 mg of protamine to partially reverse the heparin given when the first sheath was placed. The patient tolerated the procedure well and was transferred to the CV ICU in satisfactory condition. TRANSINT:[id number] Voice Confirmation ID: [id number] DOCUMENT ID: [id number] NEENA TROTTER MD at 1325 CC: [id number] DICTATION DATE: 12/02/16 1120 VP CLINICAL: 12/02/16 2044 ADM IN [facility] [id number] [place] [address]
--- NOTE | 2016-12-04 15:00 | NUR ---
REASSESSMENT VIA FLOWSHEET, SEE FOR DETAILS.
--- NOTE | 2016-12-04 19:00 | NUR ---
REPORT RECEIVED AND ASSESSMENT COMPLETED. SEE FLOWSHEET.
--- NOTE | 2016-12-04 21:00 | NUR ---
STARTED CLEVIPREX PER ORDERS DUE TO HIGH B/P. 2100 MEDS GIVE. PROVIDED NORCO PRN FOR PAIN IN FOOT. WILL CONTINUE TO MONITOR.
--- NOTE | 2016-12-04 22:00 | NUR ---
PT O2 SAT IN UPPER 80'S WHEN SLEEPING. WHEN AROUSED RISES INTO LOW 90'S WILL MONITOR FOR CHANGES IN STATUS
--- NOTE | 2016-12-04 23:00 | NUR ---
REASSESSMENT COMPLETED. SEE FLOWSHEET.
[2016-12-05] VITALS (96 sets, daily range): BP systolic 123–158; BP diastolic 42–107
--- NOTE | 2016-12-05 01:00 | NUR ---
PT REQUESTED PAIN MEDICATION. WILL ADMINISTER WHEN AVAILABLE PER ORDERS. PLACED PT ON O2 3L. VSS. WILL CONTINUE TO MONITOR.
--- NOTE | 2016-12-05 03:34 | NUR ---
REASSESSMENT COMPLETED. SEE FLOWSHEET. NO OTHER CHANGES AT THIS TIME. VSS. WILL MONITOR.
--- NOTE | 2016-12-05 05:03 | NUR ---
NO CHANGES IN STATUS AT THIS TIME.
--- NOTE | 2016-12-05 07:00 | NUR ---
PT REPORT REC'D, PT CARE ASSUMED. PT AAOX4 VSS, ROOM AIR, NO C/O PAIN. LEFT SUBCLAVIAN CVL WITH FLUIDS INFUSING, SEE FLOW SHEET. SCD'S, SHIFT ASSESSMENT COMPLETED, SEE FLOW SHEET. ROOM FREE OF CLUTTER, CALL LIGHT IN REACH, WILL CONTINUE TO MONITOR PT.
[2016-12-05 07:41] LABS: HEMATOCRIT 26.2 % (36.0-48.0); HEMOGLOBIN 8.1 g/dL (12-16); MCH 23.3 pg (26.0-34.0); MCHC 30.9 g/dL (31.0-37.0); MCV 75.5 fL (80.0-100.0); MEAN PLATELET VOLUME 10.1 fL (7.4-10.4); RBC 3.47 10x6/uL (4.00-5.40); RDW 15.8 % (11.5-14.5); WBC 7.9 10x3/uL (4.8-10.8)
[2016-12-05 07:58] LABS: ALBUMIN 2.4 g/dL (3.4-5.0); ANION GAP 9.6 mmol/L (8-16); BILIRUBIN - TOTAL 0.24 mg/dL (0.2-1.3); CALCIUM 8.1 mg/dL (8.5-10.1); CARBON DIOXIDE 29.6 mmol/L (21.0-32.0); CREATININE - SERUM 0.9 mg/dL (0.6-1.3); PROTEIN - SERUM 5.2 g/dL (6.4-8.2)
[2016-12-05 08:00] LABS: POTASSIUM - SERUM 4.2 mmol/L (3.5-5.1)
--- NOTE | 2016-12-05 08:00 | NUR ---
DR. JUAREZ AT THE BEDSIDE, VSS, WILL CONTINUE TO MONITOR PT.
--- NOTE | 2016-12-05 08:15 | NUR ---
DR. VÁZQUEZ AT THE BEDSIDE, ALL QUESTIONS ANSWERED, VSS, WILL CONTINUE TO MONITOR PT.
--- NOTE | 2016-12-05 09:00 | NUR ---
PT AMBULATED APPROX 100FT WITH PHYSICAL THERAPY, PT TOLERATED WELL, SITTING UP IN CHAIR. WILL CONTINUE TO MONITOR PT.
--- NOTE | 2016-12-05 11:00 | NUR ---
PT RESTING WITH EYES CLOSED, NO C/O PAIN, VSS, ROOM AIR. REASSESSMENT COMPLETED, SEE FLOW SHEET. ROOM FREE OF CLUTTER, CALL LIGHT IN REACH, WILL CONTINUE TO MONITOR PT.
--- NOTE | 2016-12-05 12:00 | NUR ---
TRANSFERRED PT FROM CHAIR TO BATHROOM, PT TOLERATED WELL, TRANSFERRED BACK TO CHAIR FOR LUNCH, NO C/O PAIN, VSS, WILL CONTINUE TO MONITOR PT.
--- NOTE | 2016-12-05 13:16 | NUR ---
PHYSICAL THERAPY WITH PT, PT AMBULATED APPROX 100FT. PT TOLERATED WELL, WILL CONTINUE TO MONITOR PT.
--- NOTE | 2016-12-05 14:00 | NUR ---
ASSUMED CARE OF PT. REPORT RECIEVED FROM PORTILLO HAWK.
--- NOTE | 2016-12-05 15:15 | NUR ---
UNIT OF BLOOD INFUSING PER ORDERS. NO SIGNS OF TRANSFUSION REACTION NOTED AT THIS LILLI. WILL CONT TO ASSESS.
--- NOTE | 2016-12-05 17:00 | NUR ---
ASSISTED UP IN BED FOR DINNER. DENIES NEEDS AT THIS TIME. CALL LIGHT IN REACH. WILL CONT TO ASSESS.
--- NOTE | 2016-12-05 18:00 | NUR ---
UNIT OF BLOOD COMPLETE. NO ISSUES NOTED.
--- NOTE | 2016-12-05 19:00 | NUR ---
REPORT RECEIVED AND ASSESSMENT COMPLETED. SEE FLOWSHEET FOR FULL DETAILS. PT RESTING IN ROOM. PRBC TODAY. HAS PROCEDURE WITH IR TOMORROW. CONSENTS HAVE BEEN OBTAINED. PT STILL ON CLEVIPREX. RUNNING AT 6 MG/HR RIGHT NOW. WILL ATTEMPT TO TITRATE OFF. WILL CONTINUE TO MONITOR.
--- NOTE | 2016-12-05 21:00 | NUR ---
MEDS GIVEN DURING THE 2100 HOUR. ASSISTED PT TO RESTROOM. 200 ML URINE PRODUCED. VSS. WILL CONTINUE TO MONITOR.
--- NOTE | 2016-12-05 23:16 | NUR ---
REASSESSMENT COMPLETED. SEE FLOWSHEET. ASSISTED PT TO RESTROOM AGAIN. 250 OUT. VSS. WILL MONITOR.
[2016-12-06] VITALS (80 sets, daily range): BP systolic 114–163; BP diastolic 40–98
--- NOTE | 2016-12-06 01:00 | NUR ---
CLEVIPREX INCREASED BY 1MG/HR AT THIS TIME DUE TO INCREASED SYSTOLIC PRESSURE. WILL MONITOR FOR CHANGES. NOW AT 6MG/HR.
--- NOTE | 2016-12-06 03:00 | NUR ---
REASSESSMENT COMPLETED. CLEVIPREX HAS BEEN GRADUALLY INCREASED TO 8 MG/HR. WILL CONTINUE TO MONITOR PRESSURE AND TITRATE ACCORDINGLY.
--- NOTE | 2016-12-06 05:14 | NUR ---
REPLACED CLEVIPREX TUBING AND BOTTLE. NO OTHER CHANGES AT THIS TIME.
[2016-12-06 06:00] LABS: BASOPHILS 0.3 % (0.0-2.0); EOSINOPHILS 4.3 % (0-7); IMMATURE GRANULOCYTES 0.5 % (0-5); MCH 25.9 pg (26.0-34.0); MCHC 34.3 g/dL (31.0-37.0); MCV 75.5 fL (80.0-100.0); MEAN PLATELET VOLUME 9.8 fL (7.4-10.4); MONOCYTES 11.6 % (2-11); NEUTROPHILS 72.3 % (40-80); PLATELET COUNT 247 10x3/uL (130-400); RDW 16.1 % (11.5-14.5); WBC 9.8 10x3/uL (4.8-10.8)
[2016-12-06 06:01] LABS: HEMATOCRIT 31.8 % (36.0-48.0); HEMOGLOBIN 10.9 g/dL (12-16); RBC 4.21 10x6/uL (4.00-5.40)
[2016-12-06 06:08] LABS: INR 1.04 (0.85-1.17); PROTIME 13.5 SECONDS (11.6-15.0)
[2016-12-06 06:09] LABS: APTT 45.3 SECONDS (22.8-39.4)
--- NOTE | 2016-12-06 07:15 | NUR ---
REPORT RECIEVED FROM GARAGEMAN NURSE. PT RESTING IN BED QUIETLY. NO S/SX OF ACUTE DISTRESS AT THIS TIME. HIBICLENS BATH COMPLETED. ANESTHESIA AT BEDSIDE TO PRE OP PT. ORDER RECIEVED TO ADMINISTER PRE OP MEDICATIONS.
--- NOTE | 2016-12-06 08:00 | NUR ---
IR NURSE AT BEDSIDE TO TAKE PT FOR PROCEDURE. CONSENTS IN CHART.
--- NOTE | 2016-12-06 09:40 | NUR ---
NUTRITION MONITORING & EVAL PT CURRENTLY NPO S/P PROCEDURE. NURSING TO RESUME DIET AND ADD PAVAN BOOST TO DIET ORDER. RD FOLLOWING
--- NOTE | 2016-12-06 11:30 | NUR ---
REPORT RECIEVED FROM MICHAELA ARVIZU RN. AWAITING PT FROM RR.
--- NOTE | 2016-12-06 12:00 | NUR ---
RECIEVED PT TO ROOM VIA BED FROM RECOVERY ROOM. CLEVIPREX GTT TURNED BACK ON TO ASSIST WITH HTN. BP 194 SYSTOLIC. PT C/O PAIN TO RIGHT HIP. DRESSING TO LEFT GROIN. C/D/I. NO BRUISING OR HEMATOMA NOTED. DRESSING TO RIGHT ANKLE C/D/I. NO BRUISING OR HEMATOMA NOTED. PEDAL PULSE EASILY DOPPLERABLE TO RIGHT FOOT. DENIES NEEDS AT THIS TIME. WILL CONTINUE TO ASSESS. VS Q15 MIN. WILL TITRATE CLEVIPREX ACCORDINGLY.
--- NOTE | 2016-12-06 14:00 | NUR ---
STRESS INCONTINENCE NOTED. PT URINATED A SMALL AMOUNT WHEN COUGHING. TOTAL LINEN CHANGE PRIOVIDED.
--- NOTE | 2016-12-06 15:00 | NUR ---
SPOKE WITH DAUGHTER DENISE TINAJERO. UPDATE PROVIDED.
--- NOTE | 2016-12-06 17:00 | NUR ---
REPOSITIONED IN BED FOR COMOFORT. CALL LIGHT PLACED IN REACH. WILL CONT TO ASSESS.
--- NOTE | 2016-12-06 19:00 | NUR ---
Assessment complete. See flowsheet. Pt resting quietly with VSS. NO s/s pain or distress. Pt awakens easily to verbal stimulation and is alert, oriented x4 and following all commands and conversation. Pupils size 3 bilaterally ERRLA. Pt moving all extremities with 4/5 strength. No edema noted. Pt receiving O2 @ 2L NC with lung sound CTA. Respirations even and unlabored. HR SR with PACs noted. S1S2 auscultated. Radial pulses +2 bilaterally. Left dorsalis pedis pulse +2. Right dorsalis pedis pulse doppler located. 4th toe to right foot black. Pt denies pain at this time. Left DLSC CVL site CDI no s/s infection with D51/2NS infusing @ 50cc/hr with heparin gtt @ 750un/hr (7.5cc/hr) and cleviprex gtt @ 20mg/hr (40cc/hr). Cleviprex gtt rate decreased to 16mg/hr for SBP 120s. Left groin site CDI with dressing secure. Abdomen soft, non-tender with BS present to all quadrants. Temp 98.5F orally. Pt denies needs at this time and continues to self-position and rest. Call light and bedside table within pt reach. CPOC.
--- NOTE | 2016-12-06 21:00 | NUR ---
No neuro changes to note. VSS. PM meds administered. See MAR. Peanut butter crackers, milk and fresh water provided per pt request.
--- NOTE | 2016-12-06 22:00 | NUR ---
Pt helped to bedpan for void 200cc clear, yellow urine. pt pulled up in bed and helped to self-position for comfort. call light and bedside table remain within reach. VSS. CPOC.
--- NOTE | 2016-12-06 22:31 | NUR ---
Cleviprex gtt weaned to 8mg/hr (16cc/hr)
--- NOTE | 2016-12-06 23:00 | NUR ---
Reassessment complete. See flowsheet. Pt resting with no neuro changes to note. VSS. O2 @ 2L NC. Respirations remain even and unlabored. HR SR with PACs. S1S2 auscultated. No peripheral pulse changes to note. CVL site remains CDI. Cleviprex gtt rate decreased to 4mg/hr for SBP 120s. Lung sounds remain CTA. BS +. Pt denies pain or discomforts at this time. No other changes to note. Call light and bedside table remain within pt reach. CPOC.
[2016-12-07] VITALS (44 sets, daily range): BP systolic 134–195; BP diastolic 47–79
--- NOTE | 2016-12-07 | NUR ---
Cleviprex gtt turned off
--- NOTE | 2016-12-07 01:00 | NUR ---
Pt resting quietly with VSS. No s/s pain or distress and allowed to continue resting undisturbed. Call light and bedside table remain within reach. CPOC.
--- NOTE | 2016-12-07 02:28 | NUR ---
Pt on bedpan to void 150cc clear/yellow urine. Self pericare completed.
--- NOTE | 2016-12-07 03:00 | NUR ---
Reassessment complete. See flowsheet. Awakens easily with no neuro changes to note. VSS. O2 @ 2L NC. Respirations remain even and unlabored. HR SR with PACs. S1S2 auscultated. No peripheral pulse changes to note. CVL site remains CDI. Cleviprex gtt rate decreased to 4mg/hr for SBP 120s. Lung sounds remain CTA. BS +. Pt denies pain or discomforts at this time. No other changes to note. Call light and bedside table remain within pt reach. CPOC.
--- NOTE | 2016-12-07 04:14 | NUR ---
Pt on bedpan to void 400cc concentrated, yellow urine.
--- NOTE | 2016-12-07 05:00 | NUR ---
Pt resting with VSS. NO changes to note.
--- NOTE | 2016-12-07 05:29 | NUR ---
Cleviprex gtt back on @ 5mg/hr for SBP 171.
--- NOTE | 2016-12-07 19:00 | NUR ---
Assessment complete. See flowsheet. Pt awake upon entrance into room with VSS. NO s/s pain or distress. Pt moving all extremities with 4/5 strength. +1 pitting edema noted to lower extremities bilaterally. Pt receiving O2 @ 2L NC. Lung sounds CTA. HR SR with PACs noted. S1S2 auscultated. Radial pulses +2 with left dorsalis pedis pulse +2 and right dorsalis pedis pulse palpated weak and doppler located. Pt left subclavian CVL site CDI with D51/2NS infusing @ 50cc/hr with Heparin gtt @ 750un/hr. BS + to all quadrants. Pt bedpan emptied of 400cc clear/yellow urine. Pt denies pain at this time and helped back on bedpan after assessment. Temp 98.5F orally. Call light and bedside table within pt reach. CPOC.
--- NOTE | 2016-12-07 19:20 | NUR ---
Pt voiding 500cc to bedpan.
--- NOTE | 2016-12-07 21:00 | NUR ---
Bed bath with gown and linen changes completed. Pt helped to position for comfort. VSS. Call light and bedside table within pt reach. CPOC.
--- NOTE | 2016-12-07 23:00 | NUR ---
Reassessment complete. See flowsheet. Pt resting quietly with VSS. NO neuro changes to note. O2 @ 2L NC. Respirations unlabored. Lung sounds CTA. HR SR with PACs noted. S1S2 auscultated. No peripheral pulse changes to note. BS +. Left groin site CDI. Right 4th toe black; unchanged. Pt helped on bedpan to void 400cc clear/yellow urine. Pt self-positions for comfort. Warm blanket provided per pt request. Call light and bedside table remain within pt reach. CPOC.
[2016-12-08] VITALS (24 sets, daily range): BP systolic 140–177; BP diastolic 44–69
--- NOTE | 2016-12-08 00:25 | NUR ---
Pt c/o toe pain to right foot rated 5/10. [place] 5mg 1 tab administered. See MAR. Pt helped to bedpan to void 400cc clear/yellow urine. Call light and bedside table within reach. No further needs at this time. CPOC.
--- NOTE | 2016-12-08 01:00 | NUR ---
Pt resting quietly, self-positioned to left side with VSS. Pain denied. Call light and bedside table remain within reach. CPOC.
--- NOTE | 2016-12-08 03:00 | NUR ---
Reassessment complete. See flowsheet. No neuro changes to note. O2 @ 2L NC. Lung sounds remain clear to all garcia. Respirations even and unlabored. HR SR with PACs. S1S2 auscultated. NO peripheral pulse changes to note. Necrotic 4th toe to right foot unchanged. Left groin site remains CDI; unchanged. CVL site CDI with NO IVF changes to note. BS +. Pt continues to self-position for comfort. No c/o pain. Call light and bedside table remain within pt reach. CPOC.
--- NOTE | 2016-12-08 05:00 | NUR ---
Pt awake and helped on bedpan for void 500cc. Pt pulled up in bed and helped to reposition for comfort. VSS. No further needs at this time. Call light and bedside table remain within pt reach. CPOC.
[2016-12-08 08:11] LABS: BASOPHILS 0.3 % (0.0-2.0); EOSINOPHILS 2.4 % (0-7); HEMATOCRIT 32.4 % (36.0-48.0); HEMOGLOBIN 10.3 g/dL (12-16); IMMATURE GRANULOCYTES 0.4 % (0-5); MCH 24.2 pg (26.0-34.0); MCHC 31.8 g/dL (31.0-37.0); MCV 76.2 fL (80.0-100.0); MEAN PLATELET VOLUME 9.7 fL (7.4-10.4); MONOCYTES 13.3 % (2-11); NEUTROPHILS 72.6 % (40-80); PLATELET COUNT 248 10x3/uL (130-400); RBC 4.25 10x6/uL (4.00-5.40); RDW 16.8 % (11.5-14.5); WBC 9.1 10x3/uL (4.8-10.8)
[2016-12-08 08:28] LABS: ANION GAP 9.6 mmol/L (8-16); CALCIUM 8.6 mg/dL (8.5-10.1); CARBON DIOXIDE 28.5 mmol/L (21.0-32.0); CREATININE - SERUM 1.2 mg/dL (0.6-1.3); POTASSIUM - SERUM 4.1 mmol/L (3.5-5.1)
--- NOTE | 2016-12-08 19:00 | NUR ---
Assessment complete. See flowsheet. Pt resting quietly with VSS and awakens easily to verbal stimulation. No neuro deficits noted. Pt alert, oriented x4 and following all conversation. Pupils size 3 bilaterally ERRLA. Pt moving all extremities with 4/5 strength. Trace edema noted to lower extremities bilaterally. Respirations even and unlabored. O2 @ 2L NC. Lung sounds clear to all garcia. HR SR with PACs noted. S1S2 auscultated. Radial pulses +2 bilaterally. Right dorsalis pedis pulse doppler located; left dorsalis pedis pulse +2. Left CVL site CDI no s/s infection with D51/2NS infusing @ 50cc/hr with Heparin gtt @ 750un/hr (7.5cc/hr). Abdomen soft with BS present to all quadrants. Left groin site CDI with dressing secure, no s/s infection. Right fourth toe necrotic/black. Pt denies pain at this time and helped to bedpan for void. Afterwards, pt pulled up in bed and helped to position for comfort. Call light and bedside table within pt reach. CPOC.
--- NOTE | 2016-12-08 20:32 | NUR ---
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
--- NOTE | 2016-12-08 23:00 | NUR ---
Reassessment complete. See flowsheet. Pt resting with VSS and awakens easily to verbal cue with no neuro changes. O2 @ 2L NC. Lung sounds CTA. HR SR with PACs. S1S2 auscultated. No peripheral pulse changes to note. CVL site CDI with NO IVF changes to note. BS +. Left groin site unchanged. Pt continues to self-position for comfort and denies pain or further needs at this time. Call light and bedside table remain within pt reach. CPOC
[2016-12-09] VITALS (21 sets, daily range): BP systolic 132–198; BP diastolic 48–99
--- NOTE | 2016-12-09 | NUR ---
Heparin gtt turned off per order.
--- NOTE | 2016-12-09 01:00 | NUR ---
Pt resting quietly with VSS
--- NOTE | 2016-12-09 02:15 | NUR ---
Pt helped on bedpan for void 300cc. [place] 1tab 5mg administered for c/o back pain rated 5/10. SEE MAR
--- NOTE | 2016-12-09 04:39 | NUR ---
Pt on bedpan for liquid stool and void. Chlorhexidine bed bath with gown and linen changes completed.
--- NOTE | 2016-12-09 05:00 | NUR ---
Pt sleeping with VSS. NO s/s pain or distress and allowed to continue resting undisturbed. Call light and bedside table remain within pt reach. CPOC.
[2016-12-09 06:07] LABS: BASOPHILS 0.2 % (0.0-2.0); EOSINOPHILS 2.3 % (0-7); HEMATOCRIT 30.4 % (36.0-48.0); HEMOGLOBIN 9.6 g/dL (12-16); IMMATURE GRANULOCYTES 0.3 % (0-5); LYMPHOCYTES 8.9 % (15-50); MCH 24.2 pg (26.0-34.0); MCHC 31.6 g/dL (31.0-37.0); MCV 76.8 fL (80.0-100.0); MEAN PLATELET VOLUME 9.4 fL (7.4-10.4); MONOCYTES 17.2 % (2-11); NEUTROPHILS 71.1 % (40-80); PLATELET COUNT 245 10x3/uL (130-400); RBC 3.96 10x6/uL (4.00-5.40); WBC 8.6 10x3/uL (4.8-10.8)
[2016-12-09 06:19] LABS: ALBUMIN 2.2 g/dL (3.4-5.0); ANION GAP 8.6 mmol/L (8-16); BILIRUBIN - TOTAL 0.32 mg/dL (0.2-1.3); CALCIUM 8.5 mg/dL (8.5-10.1); CREATININE - SERUM 1.4 mg/dL (0.6-1.3); POTASSIUM - SERUM 4.6 mmol/L (3.5-5.1); PROTEIN - SERUM 5.8 g/dL (6.4-8.2)
--- NOTE | 2016-12-09 07:15 | NUR ---
REPORT RECEIVED FROM HEEL COVERER MACHINE OPERATOR NURSE. PT RESTING IN BED QUIETLY. DENIES NEEDS AT THIS TIME. ASSESSMENT COMPLETE PER FLOWSHEET. CALL LIGHT IN REACH. BED IN LOW POSITION. WILL CONTINUE TO ASSESS FOR CHANGES THROUGHTOUT SHIFT.
--- NOTE | 2016-12-09 08:30 | NUR ---
INCONTINENT CARE PROVIDED. PARTIAL LINEN CHANGE COMPLETED. PT ASSISTED WITH BRUSHING HER TEETH. REPOSITIONED IN BED FOR COMFORT. CALL LIGHT IN REACH. BED IN LOW POSITION.
--- NOTE | 2016-12-09 10:23 | NUR ---
NUTRITION MONITORING & EVAL CHART REVIEWED. PT CURRENTLY NPO FOR AMPUTATION OF TOE. WILL PROVIDE DIET WHEN RESUMED, MONITOR PT PROGRESS, PO INTAKE. RD FOLLOWING
--- NOTE | 2016-12-09 11:00 | NUR ---
ASSITED ON BED HYDE. VOIDED 300CC OF CLEAR YELLOW URINE. PARTIAL LINEN CHANGE PROVIDED.
--- NOTE | 2016-12-09 14:45 | NUR ---
OR CALLED TO PRE OP PT. WILL ADMINISTER PER ORDERS.
--- NOTE | 2016-12-09 16:30 | NUR ---
PT TAKEN VIA BED TO PRE OP HOLDING.
--- NOTE | 2016-12-09 20:15 | NUR ---
Received patient resting in bed with eyes closed, assessment completed per flowsheet. Patient is AO x4, demeanor is calm and relaxed. Eyes PERRLA @ 3mm with brisk response, sclera is white. Oral/Nasal Mucosa is moist and intact, Tongue midline. S1/S2 noted Patient NSR on telmetry, HR 67 rhythmic and regular. Breathing is even and unlabored on 3L via NC, Lung sounds clear bilateral upper with diminished lower. Abdomen is soft and non-tender to palpation, bowel sounds Active x4. Full ROM all extremities with pulses palpable bilateral upper and lower L, unable to assess R foot due to dressing. Cap refill <3 sec R foot, skin warm to touch and pink. CVL L subclavian dbl lumen, dressing CDI with fluids infusing. HS meds given without difficulty, patient states "Everything's coming back now...must have been medication" that made her have "strange dreams". Patient repositioned for comfort, no further needs at this time with all VSS and will continue to monitor.
--- NOTE | 2016-12-09 21:00 | NUR ---
No visitors at this time, patient resting in bed with eyes closed. Patient NSR on Telemetry with HR 68, rhythmic and regular. Breathing is even and unlabored on 3l via NC, O2 sat 98%. No further needs at this time, all VSS and will continue to monitor.
--- NOTE | 2016-12-09 22:40 | NUR ---
Assisted patient onto bedpan at request, 300ml clear yellow urine noted. Patient cleaned and partial bath/linen change performed, repositioned for comfort. No further needs at this time, all VSS and will continue to monitor.
--- NOTE | 2016-12-09 23:00 | NUR ---
Reassessment completed per flowsheet, patient resting in bed with eyes closed. NSR on telemetry with HR 67, rhythmic and regular. Breathing is even and unlabored on 2L via NC, O2 sat 97%. R foot pulses unable to assess due to dressing, cap refill <3 sec with skin warm and pink. Patient states pain R foot 2/10 after pain medication given. No further needs at this time, all VSS and will continue to monitor.
[2016-12-10] VITALS (14 sets, daily range): BP systolic 148–187; BP diastolic 45–91
--- NOTE | 2016-12-10 01:00 | NUR ---
PT SLEEPING RESP REG AND NONLABORED.
--- NOTE | 2016-12-10 03:00 | NUR ---
SHIFT REASSESSMENT COMPLETED. NO SIGNIFICANT CHANGES.
--- NOTE | 2016-12-10 05:00 | NUR ---
VSS CONTINUES TO SLEEP RESP REG AND NONLABORED
--- NOTE | 2016-12-10 07:00 | NUR ---
Received report and assumed care of patient from PORTILLO Pearce. Patient is currently awake, alert and oriented to person, place, time and situation. Patient does state she is having visual hallucinations. She states they are pleasent and of scenic views. Patient complains of pain to right foot at surgical site. See shift assessment flowsheet for all findings.
--- NOTE | 2016-12-10 07:50 | NUR ---
Andre with PT in room to get PT OOB and to chair. Pt tolerated well. Beared weight on the right heel. Surgical dressing remains in place.
--- NOTE | 2016-12-10 08:20 | NUR ---
through to see patient. Patient up in chair with breakfast tray. wants to see patient walk later today and spoke to her regarding rehab.
--- NOTE | 2016-12-10 09:21 | NUR ---
Patient finished with breakfast tray. Remains up in chair, call light within reach.
--- NOTE | 2016-12-10 09:56 | NUR ---
Marifer Castaneda APRN in room to see patient. Heel boot ordered and ambulating discussed.
--- NOTE | 2016-12-10 12:19 | NUR ---
Patient okayed to go to rehab today.
--- NOTE | 2016-12-10 12:21 | NUR ---
Jaylin with Rehab called and spoken with. Pt okayed for rehab and informed of this. Will be this afternoon
--- NOTE | 2016-12-10 12:43 | NUR ---
Rehab Prescreening Consult recieved and the chart has been reviewed. The patient meets criteria and is agreeable to participate in the required therapy. She will be accepted today if the physicians agree. The CM Briseida Atkins has been made aware. Jaylin Michelle RN Clinical Liaison, Rehab
[2016-12-10] MEDS ORDERED: ELIQUIS5 MG PO (12:45)
[2016-12-10] MEDS ORDERED: PLAVIX75 MG PO (12:46)
[2016-12-10] MEDS ORDERED: BETAPACE 80 MG80 MG PO (12:47)
[2016-12-10] MEDS ORDERED: DAKIN'S 0.125%480 M1 TOPICAL (12:49)
--- NOTE | 2016-12-10 13:01 | NUR ---
Patient Name: CYDNEY PITT Encounter No: [id number] : 1930 Primary Insurance: MEDICARE A & B Anticipated DC Date: 12-10-2016 Planned Disposition: INPATIENT REHAB External Planned Provider: [facility] IP REH[facility] DCP follow-up note: CM MET WITH PATIENT TO RE-ASSESS DC PLAN. PT HAS INPATIENT REHAB PRE-SCREENING ORDER AND SHE WOULD LIKE TO DC TO [facility] IP REHAB. CM SPOKE WITH PEGGY IN IP REHAB AND SHE INFORMED THAT THEY CAN ACCEPT PATIENT TODAY IF DISCHARGED. PT TO D/C TODAY TO [facility] IP REHAB. SHE VOICED NO OTHER DC NEEDS AT THIS TIME. SHE STATED SHE WILL CALL HER DAUGHTER TO INFORM OF DC PLANS. DC IMM SIGNED AND PLACED IN CHART. WILL FOLLOW AND ASSIST IF ANY NEEDS ARISE. Briseida Capps RN,
[2016-12-10 14:00] LABS: HEMATOCRIT 29.2 % (36.0-48.0); HEMOGLOBIN 9.2 g/dL (12-16); MCH 24.6 pg (26.0-34.0); MCHC 31.5 g/dL (31.0-37.0); MCV 78.1 fL (80.0-100.0); MEAN PLATELET VOLUME 9.6 fL (7.4-10.4); RBC 3.74 10x6/uL (4.00-5.40); RDW 17.1 % (11.5-14.5); WBC 9.6 10x3/uL (4.8-10.8)
--- NOTE | 2016-12-10 14:00 | NUR ---
Labs drawn per order. Sent to lab via tube system.
[2016-12-10 14:10] LABS: ANION GAP 12.2 mmol/L (8-16); CALCIUM 8.3 mg/dL (8.5-10.1); CARBON DIOXIDE 27.6 mmol/L (21.0-32.0); CREATININE - SERUM 1.7 mg/dL (0.6-1.3); POTASSIUM - SERUM 4.8 mmol/L (3.5-5.1)
--- NOTE | 2016-12-10 15:21 | NUR ---
here to see patient. Patient okayed for rehab per his services. Instructed to leave surgical dressing at this time.
--- NOTE | 2016-12-10 15:55 | NUR ---
Awating room in rehab.
--- NOTE | 2016-12-10 17:28 | NUR ---
Patient set up with dinner trashalini. EMAR cleared. Will call rehab with report.
--- NOTE | 2016-12-10 18:51 | NUR ---
Report called to Rehab, pt to be taken via wheelchair
--- NOTE | 2016-12-10 19:04 | NUR ---
here to see patient. No new orders. Patient getting ready to go down to rehab.
--- NOTE | 2016-12-16 13:10 | OP ---
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 PROCEDURE: Amputation of the left toe phalanx with debridement of the metatarsal head. SURGEON: Alexandria Vázquez MD ANESTHESIA: General. INTRAOPERATIVE COMPLICATIONS: None. SUMMARY OF PATHOLOGIC FINDINGS: This toe was basically dry gangrene and required amputation with debridement of the metatarsal head. It was closed. OPERATIVE SUMMARY IN DETAIL: After obtaining the appropriate preoperative orthopedic surgery consents as well as anesthetic consultation, evaluation and clearance, the patient was brought to the operating about were placed in supine position. After general laryngeal mask airway anesthesia was administered, the patient's left lower extremity was prepped and draped in routine sterile fashion. Please note that the tourniquet was not used as the patient has proximal stents as well as severe atherosclerosis of her entire lower extremity. An elliptical incision was made about the base of the toe. Dissection was carried down to the MCP joint, which had already had previous phalangeal autoclasis. The toe was then removed. The wound was copiously irrigated. Bone biters and rongeurs were then used to take down the metatarsal head. Having completed this, the dorsal and plantar flaps were reapproximated using 3-0 Prolene. After the wound was reapproximated and closed, sterile dressings were applied. The patient was awakened and taken to recovery room in stable condition. All final needle and sponge counts were correct. TRANSINT:[id number] Voice Confirmation ID: [id number] DOCUMENT ID: [id number] ALEXANDRIA VÁZQUEZ MD at 1310 CC: [id number] DICTATION DATE: 12/12/16 0949 REGULATORY MANAGER: 12/12/16 1029 DIS IN 12/10/16 [place] [id number]
--- NOTE | 2016-12-17 14:37 | CN ---
PATIENT NAME:CYDNEY PITT MEDICAL RECORD: [id number] : [birth year] LOCATION:[facility] ADMIT DATE: 11/28/16 ACCOUNT: [id number] CONSULTING PHYSICIAN: GABRIELLE LOBO MD REFERRING PHYSICIAN: LOU VERA MD DATE OF CONSULTATION: 12/02/2016 DIAGNOSES: 1. Peripheral vascular disease. 2. Paroxysmal atrial fibrillation. 3. Hypertension. HISTORY OF PRESENT ILLNESS: Mrs. Pitt is here after peripheral vascular surgery by Dr. Friend. She went into atrial fibrillation with rapid response. She has a history of atrial fibrillation. She is on Ziac, diltiazem as well as Eliquis for this. The Eliquis has been on hold. She did not get her morning medications, heart rates in the 110-120 range. She is having no chest pain, chest discomfort with this. PHYSICAL EXAMINATION: GENERAL APPEARANCE: Well-nourished, well-developed, appears stated age. Level of distress, comfortable. PSYCHIATRIC: Mental status, alert, normal affect. Orientation, oriented to time, place and person. EYES: Lids and conjunctiva, noninjected. No discharge, no pallor. ENT: Lips, teeth, gums, normal dentition. Oropharynx, no cyanosis, no pallor. NECK: Carotid arteries, bilateral normal upstroke, no bruits, no thrills. JUGULAR VEINS: No jugular venous pressure or distention. CERVICAL LYMPH NODES: Nontender, nonenlarged. THYROID: Not enlarged. Nontender. No nodules. LUNGS: Respiratory effort, unlabored. CHEST: Normal curvature. No thoracic deformity. No chest wall tenderness. Percussion, resonant. Auscultation, clear. No wheezes, no rales, no rhonchi. CARDIOVASCULAR: Heart is irregularly irregular, tachycardic with atrial fibrillation. EXTREMITIES: No cyanosis, no edema. Peripheral pulses, full and equal in all extremities, except as noted. No bruits appreciated. ABDOMEN: Soft, nondistended. Normal aorta. No bruit. Nontender. No masses. Liver, nontender, no hepatomegaly. Spleen, nontender, no splenomegaly. MUSCULOSKELETAL: No joint tenderness. No joint swelling. No erythema. NEUROLOGICAL: Normal gait, normal strength, normal tone. SKIN: Warm and dry. REVIEW OF SYSTEMS: The patient reports easy bruising but reports no swollen glands. The patient reports no fever, no night sweats, no significant weight gain, no significant weight loss. No significant exercise tolerance. The patient reports no dry eyes, no irritation, no vision change. Patient reports no difficulty hearing and no ear pain. Patient reports no frequent nose bleeds or nose and sinus problems. Patient reports on arm pain on exertion. No shortness of breath while lying down. No history of heart murmur. Patient reports no cough, no wheezing or coughing up blood. Patient reports no abdominal pain, no vomiting. Normal appetite. No diarrhea and not vomiting blood. No nausea and no constipation. Patient reports no incontinence. No difficulty urinating. No hematuria. No increased frequency. Patient reports no muscle aches. No weakness, no arthralgias, no back pain. No swelling of the CONSULT REPORT [id number] CYDNEY PITT extremities. Patient reports no abnormal mole, no jaundice, no rashes. Reports no loss of consciousness. No weakness and no numbness. No seizures, dizziness, or headaches. The patient reports no depression, no sleep disturbance, feeling safe in a relationship and no alcohol abuse. Patient reports on fatigue. Reports no runny nose or sinus pressure. No itching, no hives, and no frequent sneezing. OVERALL IMPRESSION: With atrial fibrillation, we will continue the diltiazem. We will discontinue Ziac and change this to sotalol 80 mg b.i.d., restarting her Eliquis whenever possible from a surgical standpoint. TRANSINT:[id number] Voice Confirmation ID: [id number] DOCUMENT ID: [id number] GABRIELLE LOBO MD at 1437 CC: [id number] DICTATION DATE: 12/02/16 1531 RIBBON WINDER: 12/02/16 2157 DIS IN 12/10/16 [facility] [address] [place] [address]
== END 2016-12-10 19:16 | DRG 271 ==
LOC: D.MS 13:18 → D.CVICU 13:18 → D.MS 11-30 00:17 → D.SDCHOLD 11-30 00:17 → D.CVICU 12-02 10:24
PROVIDERS: Family Medicine; Internal Medicine Cardiovascular Disease; Orthopaedic Surgery; Radiology Diagnostic Radiology; ADMIT Family Medicine
PROC: 04CT3ZZ Extirpation of Matter from Right Peroneal Artery, Percutaneous Approach (ICD-10-PCS; 2016-12-02)
PROC: 047K3Z1 Dilation of Right Femoral Artery using Drug-Coated Balloon, Percutaneous Approach (ICD-10-PCS; 2016-12-02)
PROC: 047M3ZZ Dilation of Right Popliteal Artery, Percutaneous Approach (ICD-10-PCS; 2016-12-02)
PROC: B41G1ZZ Fluoroscopy of Left Lower Extremity Arteries using Low Osmolar Contrast (ICD-10-PCS; 2016-12-02)
PROC: 04CT3ZZ Extirpation of Matter from Right Peroneal Artery, Percutaneous Approach (ICD-10-PCS; 2016-12-02)
PROC: 0Y6V0Z3 Detachment at Right 4th Toe, Low, Open Approach (ICD-10-PCS; 2016-12-02)
PROC: B41F1ZZ Fluoroscopy of Right Lower Extremity Arteries using Low Osmolar Contrast (ICD-10-PCS; 2016-12-02)
PROC: 04CR3ZZ Extirpation of Matter from Right Posterior Tibial Artery, Percutaneous Approach (ICD-10-PCS; principal; 2016-12-02 07:30)
PROC: B41F1ZZ Fluoroscopy of Right Lower Extremity Arteries using Low Osmolar Contrast (ICD-10-PCS; 2016-12-06)
DX: I70.218 Atherosclerosis of native arteries of extremities with intermittent claudication, other extremity (principal); I70.92 Chronic total occlusion of artery of the extremities; D62 Acute posthemorrhagic anemia; I10 Essential (primary) hypertension; E78.5 Hyperlipidemia, unspecified; I48.0 Paroxysmal atrial fibrillation; L03.031 Cellulitis of right toe; I34.0 Nonrheumatic mitral (valve) insufficiency; R19.7 Diarrhea, unspecified

== ENCOUNTER 2016-12-10 19:35 | Inpatient (IN) | payer MEDICARE, BC ==
[~2016-12-10] VITALS: Ht 162.6 cm; Wt 59.4 kg
[~2016-12-10 19:35] MED LIST changes: +BETAPACE 80 MG80 MG PO; +DAKIN'S 0.125%480 M1 TOPICAL; +ELIQUIS5 MG PO
--- NOTE | 2016-12-10 19:35 | NUR ---
PATIENT ARRIVED BY BED FROM CV UNIT. ADMITTED TO DR CUNNINGHAM. VS COMPLETE. PATIENT WAS GIVEN FRESH WATER. SR UP X3 WITH WATER AND CALL LIGHT IN REACH.
[2016-12-10 20:11] VITALS: BP 190/68; BMI 22.5
--- NOTE | 2016-12-10 21:30 | NUR ---
RESTING QUIETLY IN BED, EYES CLOSED.
--- NOTE | 2016-12-10 23:40 | NUR ---
ADMISSION ASSESSMENT AND HISTORY COMPLETE AFTER GIVEIN PATIENT HS MEDS. PATIENT C/O PAIN LEVEL OF 5/10 IN RIGHT FOOT R/T TOE #4 AMPUTATION. ASSISTED PATIENT UP TO BR VIA W/C. PATIENT WILL SIGN ADMISSION DOCUMENTS ON RETURN TO BE FROM COMMODE.
--- NOTE | 2016-12-11 02:15 | NUR ---
RESTING IN BED ON LEFT SIDE, EYES CLOSED. NO DISTRESS NOTED.
--- NOTE | 2016-12-11 04:30 | NUR ---
RESTING IN BED, RESPIRING QUIETLY.
--- NOTE | 2016-12-11 06:00 | NUR ---
IN BED, RESTING QUIETLY AFTER RECENT BLOOD DRAW FROM CVL FOR LABS AND PO MEDS.
[2016-12-11 06:11] LABS: BASOPHILS 0.4 % (0.0-2.0); EOSINOPHILS 5.1 % (0-7); HEMATOCRIT 28.4 % (36.0-48.0); IMMATURE GRANULOCYTES 0.5 % (0-5); LYMPHOCYTES 14.7 % (15-50); MCH 24.6 pg (26.0-34.0); MCHC 31.7 g/dL (31.0-37.0); MCV 77.6 fL (80.0-100.0); MEAN PLATELET VOLUME 9.6 fL (7.4-10.4); MONOCYTES 15.2 % (2-11); NEUTROPHILS 64.1 % (40-80); PLATELET COUNT 300 10x3/uL (130-400); RBC 3.66 10x6/uL (4.00-5.40); RDW 17.2 % (11.5-14.5); WBC 7.5 10x3/uL (4.8-10.8)
[2016-12-11 06:47] LABS: ANION GAP 11.4 mmol/L (8-16); CALCIUM 8.3 mg/dL (8.5-10.1); CARBON DIOXIDE 27.4 mmol/L (21.0-32.0); CREATININE - SERUM 1.4 mg/dL (0.6-1.3); POTASSIUM - SERUM 4.8 mmol/L (3.5-5.1)
[2016-12-11 07:00] VITALS: BP 180/80
--- NOTE | 2016-12-11 08:15 | NUR ---
PT SITTING ON SIDE OF BED WITH EYES OPEN EATING LUNCH CALL LIGHT IN REACH NO PROBLEMS WILL MONITER
--- NOTE | 2016-12-11 14:00 | NUR ---
IN BED DENIES NEEDS.ST AT BEDSIDE.
[2016-12-11 15:23] VITALS: Ht 162.6 cm; Wt 59.4 kg
--- NOTE | 2016-12-11 16:01 | NUR ---
CARE TEAM MEETING: PATIENT WILL BE RA AT NEXT MEETING SHE IS NEW TO THE UNIT. DR. VERA IS HER PCP. SHE USES [facility] AT HOME FOR HOME HEALTH AND SHE HAS A WALKER, W/C, SHOWER CHAIR AT HOME. [facility] IS PHARMACY OF CHOICE. SHE RESIDES AT [facility]. WILL CONTINUE TO FOLLOW WITH PATIENT.
--- NOTE | 2016-12-11 17:12 | NUR ---
PT RESTING IN BED WITH EYES OPEN CALL LIGHT IN REACH NO PROBLEMS WILL MONITER
--- NOTE | 2016-12-11 19:30 | NUR ---
IN BED, RESTING QUIETLY, EYES CLOSED.
--- NOTE | 2016-12-11 19:30 | NUR ---
PT RECEIVED IN BED WITH EYES OPEN WATCHING TV. NO SIGN/SYMPTOMS OF DISTRESS NOTED. ASSISTED TO BATHROOM VIA WALKER. BOOTS APPLIED TO BILATERAL FEET. SLOW STEADY GAIT NOTED WITH WALKER. RETURNED TO BED WITH NO OTHER NEEDS MADE KNOWN. CALL LIGHT IN REACH.
[2016-12-11 21:35] VITALS: BP 199/97
--- NOTE | 2016-12-11 21:35 | NUR ---
ASSISTED PATIENT UP TO BR VIA W/C AND BACK TO BED. ASSESSMENT AND HS MEDS THEN COMPLETED. GAVE PATIENT ULTRACET, X1 TAB PO FOR PAIN LEVEL OF 3/10 IN RIGHT TOE #4 AMPUTATION SITE.
--- NOTE | 2016-12-11 22:45 | NUR ---
RESTING QUIETLY IN BED, EYES CLOSED.
--- NOTE | 2016-12-12 00:05 | NUR ---
RESTING IN BED, EYES CLOSED. HOB UP 40 DEGREES. PATIENT ON O2 @ 2L PER N/C SINCE TIME OF ASSESSMENT SHE COULD NOT MAINTAIN BETTER THAN 91% ON ROOM AIR.
--- NOTE | 2016-12-12 02:05 | NUR ---
RESTING IN BED, EYES CLOSED.
--- NOTE | 2016-12-12 04:00 | NUR ---
ASSISTED PATIENT UP TO BR TO URINATE, AND TO CHANGE CLOTHING WITH SET-UP LEVEL OF ASSIST. THEN RETURNED HER TO BED. DELIVERED HER EARLY AM MEDS PO. STEPHANIE BLOOD FOR LABS FROM HER LEFT [facility] AND FLUSHED BOTH PORTS. DENIES FURTHER NEEDS.
--- NOTE | 2016-12-12 05:40 | NUR ---
RESTING QUIETLY IN BED, EYES CLOSED.
[2016-12-12 06:47] LABS: BASOPHILS 0.5 % (0.0-2.0); EOSINOPHILS 5.2 % (0-7); HEMATOCRIT 29.5 % (36.0-48.0); HEMOGLOBIN 9.3 g/dL (12-16); IMMATURE GRANULOCYTES 0.5 % (0-5); LYMPHOCYTES 17.2 % (15-50); MCH 24.5 pg (26.0-34.0); MCHC 31.5 g/dL (31.0-37.0); MCV 77.8 fL (80.0-100.0); MEAN PLATELET VOLUME 9.9 fL (7.4-10.4); MONOCYTES 16.4 % (2-11); NEUTROPHILS 60.2 % (40-80); PLATELET COUNT 355 10x3/uL (130-400); RBC 3.79 10x6/uL (4.00-5.40); RDW 17.4 % (11.5-14.5); WBC 7.7 10x3/uL (4.8-10.8)
[2016-12-12 06:58] LABS: ANION GAP 11.6 mmol/L (8-16); CALCIUM 8.5 mg/dL (8.5-10.1); CARBON DIOXIDE 26.8 mmol/L (21.0-32.0); CREATININE - SERUM 1.5 mg/dL (0.6-1.3); POTASSIUM - SERUM 4.4 mmol/L (3.5-5.1)
[2016-12-12 08:15] VITALS: BP 176/78
--- NOTE | 2016-12-12 08:15 | NUR ---
PT UP ON SIDE OF BED EATING BREAKFAST TOLERTING WELL WILL MONITER
--- NOTE | 2016-12-12 09:33 | RHP ---
PATIENT: CYDNEY PITT MEDICAL RECORD: [id number] ACCOUNT: [id number] LOCATION:[facility] : [birth year] ADMISSION DATE: 12/10/16 REHABILITATION HISTORY AND PHYSICAL EXAMINATION POST ADMISSION PHYSICIAN EXAMINATION CHIEF COMPLAINT: Gangrene of the right fourth toe. HISTORY OF PRESENT ILLNESS: An 86-year-old female admitted with gangrenous right fourth toe. The patient underwent arterectomy that was unsuccessful. MRI showed osteomyelitis and cellulitis. Dr. Kennedy was consulted and performed an amputation of the right fourth toe. Dr. Badillo had been treating the wound for several months now. After amputation, she developed acute blood loss anemia, 8.1 and 26.2, was given a unit of blood. During her stay, she went into AFib with RVR and a rapid response was called. Her rate was in the 110s-120s. She was given Betapace 120 mg times 1 and started on 80 mg b.i.d. She converted and remained in normal sinus rhythm on lunchroom monitor. She will continue on IV vancomycin and oral anticoagulation therapy with monitoring for GI bleeding prior to admission. She lived at the independent side of an assisted living facility. She was moderately independent with ARW for ADLs and mobility. Apparently, she is [id number] assist for ADLs and mobility. She is TWB on the right foot using heel only while wearing a postop shoe. She plans to return home to her prior level of functioning. 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 PAST MEDICAL HISTORY: Neuropathy, allergic rhinitis, hard of hearing, coronary artery disease, peripheral vascular disease, mitral valve prolapse. PAST SURGICAL HISTORY: Tonsillectomy and adenoidectomy, hysterectomy, cyst removed off urethra, stents to both legs. ALLERGIES: STATINS, MEPERIDINE, PNEUMONIA VACCINE, NSAIDS, INFLUENZA VACCINE AND TETANUS VACCINE. MEDICATIONS: Sodium hypochlorite solution topically, benazepril 20 mg a day, amlodipine 10 mg a day, Protonix 40 mg b.i.d., Cardizem 120 mg a day, Plavix 75 mg a day, tramadol p.r.n., Carafate 1 g a.c. and h.s., sotalol 80 mg b.i.d., potassium chloride 10 mEq b.i.d., Woodman 5/325 every 4 hours p.r.n., Mucinex 600 mg b.i.d., Eliquis 5 mg b.i.d. and MiraLax daily p.r.n. constipation. FAMILY HISTORY: Noncontributory. SOCIAL HISTORY: Nonsmoker, nondrinker. REVIEW OF SYSTEMS: GENERAL: Positive for fatigue and weakness. CENTRAL NERVOUS SYSTEM: Negative for headache or dizziness. CARDIOVASCULAR: No chest pains or palpitations. INFECTIOUS DISEASE: No fever or chills. HISTORY AND PHYSICAL [id number] CYDNEY PITT GASTROINTESTINAL: No nausea, vomiting or diarrhea. GENITOURINARY: No dialysis. HEME: No bleeding. ENDOCRINE: Negative thirsty or sweaty. SKIN: Status post right fourth toe amputation, area is clean and dry. PULMONARY: Positive for shortness of breath. Negative for cough. MUSCULOSKELETAL: Positive for arthritis. PHYSICAL EXAMINATION: GENERAL: No acute distress. HEENT: Normocephalic, atraumatic. Mucous membranes are moist. NECK: No JVD. CARDIOVASCULAR: Regular rate and rhythm. A III/ systolic ejection murmur. No clubbing, cyanosis or edema. RESPIRATORY: No acute distress. Decreased breath sounds bilaterally. ABDOMEN: Soft, nontender to palpation. NEUROLOGIC: Awake, alert, oriented times 4. EXTREMITIES: No clubbing or cyanosis, slight edema. Both legs in a small walking boot. IMAGING: On 12/02/2016, MRI of foot showed osteomyelitis of the distal phalanx of the right fourth toe with overlying soft tissue ulceration. LABORATORY DATA: See med rec. ASSESSMENT: An 86-year-old white female with history of peripheral vascular disease, chronic occlusion of the right fourth toe, now status post amputation with generalized weakness, admitted to rehab for further therapy. The patient has potential to make improvement. We instituted the following multidisciplinary therapies including to, but not limited to occupational, respiratory, speech, nutritional services, prosthetics and orthotics. Given her complex condition and risk for more complications, rehabilitation services cannot be provided at a lower level of care such as a fci facility. PLAN: 1. Admit to [facility] rehab for intensive inpatient therapy to include the following disciplines: A. Physical therapy to improve gait, all transfer skills and bed mobility to a modified independent level. B. Occupational therapy to improve activities of daily living to a modified independent level. C. Case management to assist with discharge planning and placement options. D. Nutrition to assist with nutritional needs. E. Rehabilitation nursing to assist in monitoring the patient's underlying medical conditions and to assist with any type of bowel or bladder management. 2. The patient's current medications and medical care will be continued. 3. The patient will be placed on standard fall precautions. 4. The patient's estimated length of stay is approximately 10-14 days. 5. We will go ahead and discuss this patient during care team staff meeting this week. 6. We will go ahead and monitor blood counts and electrolytes closely and treat her as needed. TRANSINT:[id number] Voice Confirmation ID: [id number] DOCUMENT ID: [id number] HISTORY AND PHYSICAL [id number] CYDNEY PITT HUNTER MD at 0933 CC: [id number] DICTATION DATE: 12/11/16 1136 OVERSEER KOSHER KITCHEN: 12/11/16 1357 ADM IN [facility] [address] [place] [address]
--- NOTE | 2016-12-12 11:13 | NUR ---
WOUND CARE: REMOVED DRESSING FROM LEFT FOOT AND NOTED AMPUTATION SITE (#4 TOE). THE SITE HAS SUTURES AND SHOWS NO REDNESS, EDEMA, DRAINAGE OR ODOR. CLEANSED GENTLY WITH WOUND UX DESIGN MANAGER AND PATTED DRY. COVERED WITH 2X2S, 4X4S AND SECURED WITH KERLIX. PT TOLERATED WELL.
--- NOTE | 2016-12-12 13:05 | NUR ---
PT RESTING IN BED WITH EYES OPEN CALL LIGHT IN REACH NO PROBLEMS WILL MONITER
--- NOTE | 2016-12-12 19:35 | NUR ---
PT ASSISTED TO BR. PT CHANGED INTO SWEATS FOR BED. PT RESTING AND DENIES NEEDS. WCTM. BED LOW. CL IN REACH.
[2016-12-12 19:45] VITALS: BP 167/62
--- NOTE | 2016-12-12 20:50 | NUR ---
PT HS MEDS ADMINISTERED WITHOUT DIFFICULTY. PT DENIES NEEDS. WCTM. BED LOW. CL IN REACH.
--- NOTE | 2016-12-13 00:15 | NUR ---
PT RESTING, EYES CLOSED. BED LOW. CL IN REACH.
--- NOTE | 2016-12-13 02:11 | NUR ---
PT RESTING, EYES CLOSED. BED LOW. CL IN REACH.
--- NOTE | 2016-12-13 06:27 | NUR ---
PT TOOK AM MEDS WITHOUT DIFFICULTY. PT DENIES NEEDS. WCTM. BED LOW. CL IN REACH.
--- NOTE | 2016-12-13 08:15 | NUR ---
PT RESTING IN BED WITH EYES OPEN CALL LIGHT IN REACH WILL MONITER
--- NOTE | 2016-12-13 14:25 | NUR ---
Nutrition Follow Up: Pt was unavailable at the time of RD visit. Chart reviewed. Pt is eating 13% meal avg on a regular diet. Wt stable. +BM 12/13/16. Labs noted - Na low. Meds noted. Pt with poor po intake at this time. Pt is not meeting est nutritional needs. Rec continue current diet. Will add chocolate Boost to meals (pt preferred this during acute admit). Rec consider an appetite stimulant. RD following.
[2016-12-13 14:35] LABS: BASOPHILS 0.5 % (0.0-2.0); HEMATOCRIT 28.6 % (36.0-48.0); HEMOGLOBIN 9.1 g/dL (12-16); IMMATURE GRANULOCYTES 0.8 % (0-5); LYMPHOCYTES 14.9 % (15-50); MCH 24.4 pg (26.0-34.0); MCHC 31.8 g/dL (31.0-37.0); MCV 76.7 fL (80.0-100.0); MEAN PLATELET VOLUME 9.3 fL (7.4-10.4); MONOCYTES 15.4 % (2-11); NEUTROPHILS 66.4 % (40-80); PLATELET COUNT 312 10x3/uL (130-400); RBC 3.73 10x6/uL (4.00-5.40); RDW 17.4 % (11.5-14.5); WBC 7.3 10x3/uL (4.8-10.8)
[2016-12-13 14:45] LABS: ANION GAP 10.9 mmol/L (8-16); CALCIUM 8.6 mg/dL (8.5-10.1); CARBON DIOXIDE 29.3 mmol/L (21.0-32.0); CREATININE - SERUM 1.4 mg/dL (0.6-1.3); POTASSIUM - SERUM 4.2 mmol/L (3.5-5.1)
--- NOTE | 2016-12-13 18:26 | NUR ---
PT RESTING IN BED WITH EYES OPEN CALL LIGHT IN REACH WILL MONITER
--- NOTE | 2016-12-14 00:13 | NUR ---
PT IN BED WITH EYES CLOSED AND CHEST RISING. NO SIGN/SYMPTOMS OF DISTRESS NOTED. WILL CONTINUE TO OBSERVE.
[2016-12-14 00:58] VITALS: BP 165/71
--- NOTE | 2016-12-14 07:00 | NUR ---
PT WAS RECEIVED AT THE BEGINNING OF THIS SHIFT IN BED AWAKE AND ORIENTED X 3. DENIES ANY NEEDS AND/OR CONCERNS. VITAL SIGNS; WNL. STABLE CONDITION OBSERVED. WILL BE MONITORING PT. AND ASSISTING PRN WITH ADL'S. NO SIGNS OF ANY DISCOMFORT OR DISTRESS. CALL LIGHT IS IN REACH.
[2016-12-14 12:15] VITALS: BP 166/63
--- NOTE | 2016-12-14 15:44 | NUR ---
PT WENT TO THERAPY THIS MORNING AND WORKED REALLY HARD SHE SAID. SHE HAS BEEN RESTING IN BED THIS AFTERNOON. CALL LIGHT IS IN REACH. NO SIGNS OF ANY DISCOMFORT OR DISTRESS TODAY. CONTINUING TO OBSERVE AND ASSIST.
--- NOTE | 2016-12-14 18:07 | NUR ---
PT HAS CONTINUED TO BE STABLE THIS SHIFT WITH NO CONCERNS VOICED. SHE HAS PARTICIPATED IN THERAPY TODAY AND SEEMS TO BE A HAPPY PERSON. CALL LIGHT IS IN PLACE. WATCHING TV. REQUESTED SOME COFFEE WITH CREAM.
--- NOTE | 2016-12-14 19:30 | NUR ---
pt resting in bed with family present visiting. replaced pt armband, as pt stated the previous one was too tight. pt denies any other needs at this time. Respirations regular and unlabored. no s/s of acute distress.
[2016-12-14 19:34] VITALS: BP 152/60
--- NOTE | 2016-12-14 19:40 | NUR ---
assisted pt to bathroom with sba for transfers and max assit with propelling the w/c. pt denies any c/o. pt able to don her own shoes, changed linen for patient.
--- NOTE | 2016-12-15 00:01 | NUR ---
assiste with sba for transfers from bed to w/c and w/c to toilet. pt prefers to use the w/c at this time as she states it is easier for her during the night. pt encouraged to use walker, pt states the right heel is sore from walking differently on it.
--- NOTE | 2016-12-15 04:18 | NUR ---
pt resting quietly in bed, respirations regular and unlabored, no s/s of acute distress. assisted pt to bathroom, pt appears motivated. pt states she usually gets up during the night three times.
--- NOTE | 2016-12-15 07:53 | NUR ---
PATIENT SITTING UP IN BED FOR BREAKFAST. ALERT/ORIENT X4. OXYGEN ON AT 2L PER N/C. LEFT SC SALINE LOCKED. CALL LIGHT WITHIN PATIENTS REACH. VOICES NO NEEDS AT THIS TIME
[2016-12-15 08:00] VITALS: BP 150/61
--- NOTE | 2016-12-15 11:17 | NUR ---
PATIENT RESTING WELL. WATCHING SABIANISM ON T.V. VOICES NO NEEDS AT THIS TIME. CALL LIGHT WITHIN REACH
--- NOTE | 2016-12-15 12:56 | NUR ---
DR. Luis M CUNNINGHAM IN. NEW ORDERS RECEIVED
--- NOTE | 2016-12-15 14:54 | NUR ---
SITTING UP IN BED VISITING WITH FAMILY.DENIES NEEDS.
--- NOTE | 2016-12-15 16:01 | NUR ---
PATIENT HAS VISITORS IN ROOM. VOICES NO NEEDS AT THIS TIME
--- NOTE | 2016-12-15 17:30 | NUR ---
PATIENT GIVEN SHOWER. DRESSING TO RT FOURTH TOE, FOOT DONE
--- NOTE | 2016-12-15 19:00 | NUR ---
PATIENT IN BED, AWAKE. DENIES NEEDS. SET HER UP TO COMPLETE HER MENU. WILL COLLECT IT LATER.
[2016-12-15 21:10] VITALS: BP 165/60
--- NOTE | 2016-12-15 21:10 | NUR ---
ASSISTED PATIENT UP TO BR AND BACK TO BED. ASSESSMENT AND HS MEDS COMPLETE. DENIES PAIN OR OTHER NEEDS AT THIS TIME.
--- NOTE | 2016-12-15 22:00 | NUR ---
REMAINS AWAKE IN BED, WATCHING TV. DENIES NEEDS.
--- NOTE | 2016-12-16 00:10 | NUR ---
RESTING IN BED ON LEFT SIDE. EYES CLOSED.
--- NOTE | 2016-12-16 02:20 | NUR ---
PATIENT RESTING IN BED, EYES CLOSED. WAS UP IN THE PAST HOUR TO BR WITH ASSIST FROM WALESKA SOUZA.
--- NOTE | 2016-12-16 04:40 | NUR ---
RESTING IN BED ON LEFT SIDE. RESPIRING QUIETLY.
--- NOTE | 2016-12-16 06:20 | NUR ---
ASSISTED PATIENT UP TO BR TO URINATE AND SET HER UP TO DRESS WHILE ON COMMODE. ON ASSISTING HER BACK TO BED, DELIVERED HER PO MEDS AND FLUSHED HER LEFT CHEST CVL PORTS, WHICH BOTH REMAIN PATENT. PATIENT DENIES NEEDS.
--- NOTE | 2016-12-16 07:30 | NUR ---
LAYING DOWN IN BED RESTING QUIETLY. LAYING ON SIDE WITH EYES CLOSED. CALL LIGHT IN REACH
[2016-12-16 13:16] LABS: BASOPHILS 0.6 % (0.0-2.0); EOSINOPHILS 2.5 % (0-7); HEMATOCRIT 29.8 % (36.0-48.0); HEMOGLOBIN 9.4 g/dL (12-16); IMMATURE GRANULOCYTES 0.7 % (0-5); LYMPHOCYTES 13.6 % (15-50); MCH 24.4 pg (26.0-34.0); MCHC 31.5 g/dL (31.0-37.0); MCV 77.2 fL (80.0-100.0); MEAN PLATELET VOLUME 9.5 fL (7.4-10.4); MONOCYTES 14.4 % (2-11); NEUTROPHILS 68.2 % (40-80); PLATELET COUNT 350 10x3/uL (130-400); RBC 3.86 10x6/uL (4.00-5.40); RDW 17.5 % (11.5-14.5); WBC 8.3 10x3/uL (4.8-10.8)
[2016-12-16 13:44] VITALS: BP 165/86
[2016-12-16 13:46] LABS: ANION GAP 11.3 mmol/L (8-16); CALCIUM 8.1 mg/dL (8.5-10.1); CARBON DIOXIDE 26.9 mmol/L (21.0-32.0); CREATININE - SERUM 1.5 mg/dL (0.6-1.3); POTASSIUM - SERUM 4.2 mmol/L (3.5-5.1)
--- NOTE | 2016-12-16 16:37 | NUR ---
RESTING QUIETLY IN BED. NO S/S DISTRESS. DSG CHANGED TO RT FOOT. NO S/S INFECTION.
--- NOTE | 2016-12-16 19:20 | NUR ---
PATIENT IN BED AFTER RECENT TRIP TO WITHOUT CALLING FOR ASSIST. REMINDED HER TO CALL TO INSURE HER SAFETY. GAVE HER MENU TO HER TO COMPLETE.
[2016-12-16 21:25] VITALS: BP 143/60
--- NOTE | 2016-12-16 21:25 | NUR ---
ASSESSMENT AND HS MEDS COMPLETE AFTER ASSISTING PATIENT UP TO BR TO URINATE AND BACK TO BED. GAVE HER ULTRACET X1 TAB PO FOR PAIN LEVEL OF 3/10 IN RIGHT FOOT/TOE #4 INCISION.
--- NOTE | 2016-12-16 22:25 | NUR ---
ASSISTED PATIENT UP TO BR TO URINATE AND BACK TO BED. DENIES FURTHER NEEDS.
--- NOTE | 2016-12-17 | NUR ---
IN BED, AWAKE. CURRENTLY REARRANGING HER OWN COVERS. NO COMPLAINTS AT THIS TIME.
--- NOTE | 2016-12-17 02:10 | NUR ---
RESTING IN BED, SUPINE. APPEARS COMFORTABLE.
--- NOTE | 2016-12-17 06:26 | NUR ---
PATIENT TOOK PO MEDS. FLUSHED HER LEFT CHEST CVL WHICH REMAINS PATIENT BI- DIRECTIONALLY ON BOTH PORTS.
--- NOTE | 2016-12-17 07:30 | NUR ---
RESTING QUIETLY IN BED. EYES CLOSED. CALL LIGHT IN REACH
--- NOTE | 2016-12-17 12:01 | NUR ---
SITTING IN ROOM EATING LUNCH. WEARING PROTECTIVE BOOTS TO BOTH FEET. DENIES NEEDS OR PAIN.
--- NOTE | 2016-12-17 12:25 | NUR ---
Nutrition Follow Up: Pt reported that her appetite is improving. She said that she has never been a "big eater" and she is eating the same amount that she did SEISMIC ENGINEER. Pt stated that she loves Boost and is drinking this as a snack between meals. Pt is eating 54% meal avg on a regular diet. +BM 12/15/16. No new wt. Labs noted - BUN, Cr, Glucose elevated. Meds noted. Pt with fair po intake at this time. Rec continue current diet, supplement regimen. RD following.
[2016-12-17 14:39] VITALS: BP 145/54
[2016-12-17 19:12] VITALS: BP 163/55
--- NOTE | 2016-12-17 19:40 | NUR ---
PATIENT RECENTLY RETURNED FROM TOILETING AT [facility]. WANTS TO SIGN BED ALARM WAIVER. WILL PROVIDE ONE FOR HER TO SIGN TONIGHT.
--- NOTE | 2016-12-17 21:40 | NUR ---
ASSESSMENT AND HS MEDS COMPLETE. GAVE PATIENT ULTRACET X1 TAB PO FOR PAIN LEVEL OF 3/10 IN RIGHT FOOT (TOE #4) INCISION. REWRAPPED CLEMENT WRAP AFTER REPOSITIONING KERLIX AND GAUZE DRESSING UNDERNEATH. PATIENT SIGNED BED ALARM WAIVER.
--- NOTE | 2016-12-17 22:20 | NUR ---
RESTING IN BED, EYES CLOSED.
--- NOTE | 2016-12-18 00:15 | NUR ---
IN BED, EYES CLOSED. LYING ON LEFT SIDE. NO DISTRESS NOTED.
--- NOTE | 2016-12-18 02:00 | NUR ---
RESTING IN BED ON RIGHT SIDE. NO DISTRESS NOTED.
--- NOTE | 2016-12-18 04:35 | NUR ---
RESTING QUEITLY IN BED, RESPIRATIONS UNLABORED.
--- NOTE | 2016-12-18 05:35 | NUR ---
IN BED, EYES CLOSED. NO DISTRESS EVIDENT.
[2016-12-18 07:57] VITALS: BP 168/62
--- NOTE | 2016-12-18 08:00 | NUR ---
SHIFT ASSMT COMPLETED.CL IN REACH.
[2016-12-18 10:19] LABS: BASOPHILS 0.4 % (0.0-2.0); EOSINOPHILS 3.4 % (0-7); HEMATOCRIT 29.8 % (36.0-48.0); HEMOGLOBIN 9.4 g/dL (12-16); IMMATURE GRANULOCYTES 0.6 % (0-5); LYMPHOCYTES 16.3 % (15-50); MCH 24.3 pg (26.0-34.0); MCHC 31.5 g/dL (31.0-37.0); MEAN PLATELET VOLUME 9.5 fL (7.4-10.4); MONOCYTES 13.2 % (2-11); NEUTROPHILS 66.1 % (40-80); PLATELET COUNT 381 10x3/uL (130-400); RBC 3.87 10x6/uL (4.00-5.40); RDW 17.6 % (11.5-14.5); WBC 6.8 10x3/uL (4.8-10.8)
[2016-12-18 10:28] LABS: ANION GAP 12.7 mmol/L (8-16); CALCIUM 8.3 mg/dL (8.5-10.1); CARBON DIOXIDE 25.2 mmol/L (21.0-32.0); CREATININE - SERUM 1.3 mg/dL (0.6-1.3); POTASSIUM - SERUM 3.9 mmol/L (3.5-5.1)
--- NOTE | 2016-12-18 14:25 | NUR ---
CARE TEAM MEETING: PATIENT JANIE DISCHARGE DATE IS 12/19/16 TO HER HOME. SHE RESIDES AT [facility] AND THEY WILL TRANSPORT PATIENT THERE. APPOINTMENTS WILL BE WITH, DR. VERA, DR. VÁZQUEZ AND DR. TROTTER, SHE WILL CONTINUE TO USE [facility] FOR HOME HEALTH , SHE HAS A WALKER,WHEELCHAIR AND SHOWER CHAIR . [facility] . HER DAUGHTER HAS BEEN NOTIFIED OF DISCHRGE DATE. WILL CONTINUE TO FOLLOW WITH PATIENT
--- NOTE | 2016-12-18 15:30 | NUR ---
CVL DC'D WITH TIP INTACT.
--- NOTE | 2016-12-18 19:30 | NUR ---
IN BED, AWAKE. DENIES NEEDS.
[2016-12-18 20:51] VITALS: BP 165/55
--- NOTE | 2016-12-18 20:55 | NUR ---
AWOKE PATIENT FOR ASSESSMENT AND HS MEDS WHICH ARE NOW COMPLETE. GAVE PATIENT ULTRACET X1 TAB PO FOR PAIN LEVEL OF 3/10 IN RIGHT FOOT INCISON.
--- NOTE | 2016-12-18 21:55 | NUR ---
RESTING QUIETLY, EYES CLOSED.
--- NOTE | 2016-12-19 00:25 | NUR ---
RESTING IN BED, EYES CLOSED. NO DISTRESS NOTED.
--- NOTE | 2016-12-19 01:45 | NUR ---
RESTING IN BED ON LEFT SIDE. NO DISCOMFORT NOTED.
--- NOTE | 2016-12-19 04:00 | NUR ---
RESTING IN BED, EYES CLOSED. RESPIRATIONS QUIET AND UNLABORED.
--- NOTE | 2016-12-19 05:45 | NUR ---
RESTING IN BED ON RIGHT SIDE. NO DISTRESS NOTED.
--- NOTE | 2016-12-19 08:00 | NUR ---
SHIFT ASSMT COMPLETED.
[2016-12-19] MEDS ORDERED: BENAZEPRIL HCL10 MG PO (08:13)
--- NOTE | 2016-12-19 08:38 | NUR ---
PATIENT DISCHARGING HOME TODAY. SHE HAS CHOSEN [facility] FOR HOME HEALTH. DME SHE HAS AT HOME IS WALKER, SHOWER CHAIR AND WHEELCHAIR. APPOINTMENTS: DR. VERA 12/27/16 @ 11:00, DR. VÁZQUEZ 12/23/16 @ 9:45, DR. TROTTER 03/06/17 @ 10:45. PATIENT CHOICE FORM FOR HOME HEALTH AND [facility] FORM SIGNED, EXPLAINED AND FILED IN CHART. PATIENT EDUCATED ON SIGNS AND SYMPTOMS OF INFECTION TO SURGICAL SIGHT. PATIENT VOICED UNDERSTANDING.
[2016-12-19 10:35] VITALS: BP 172/58
--- NOTE | 2016-12-19 11:56 | NUR ---
DR. HUYNH OFFICE HAS CHANGED APPOINTMENT TO 01/09/17 @ 1:30
--- NOTE | 2016-12-19 14:38 | NUR ---
SHEARING MACHINE OPERATOR FROM [facility] HERE TO PICK PATIENT UP. PATIENT HELPED OUT TO BUS BY STAFF
== END 2016-12-19 15:00 | disposition home health service (06) | DRG 560 ==
LOC: D.REHAB 19:35
PROVIDERS: Family Medicine; ADMIT Emergency Medicine
DX: Z47.81 Encounter for orthopedic aftercare following surgical amputation (principal); I70.92 Chronic total occlusion of artery of the extremities; D62 Acute posthemorrhagic anemia; L03.115 Cellulitis of right lower limb; M86.9 Osteomyelitis, unspecified; Z89.421 Acquired absence of other right toe(s); I70.218 Atherosclerosis of native arteries of extremities with intermittent claudication, other extremity; I48.91 Unspecified atrial fibrillation; R53.1 Weakness; I10 Essential (primary) hypertension; I34.0 Nonrheumatic mitral (valve) insufficiency; G62.9 Polyneuropathy, unspecified